=== PATIENT | male | born 1950 | race Hispanic/Latino ===

== ENCOUNTER 2016-08-26 09:07 | Emergency (ER) | payer OTHER ==
[2016-08-26 09:08] VITALS: BMI 20.7
[2016-08-26] MEDS ORDERED: Bacitracin 500 Units/gm Oint Foilpak UD ONE (09:43)
--- NOTE | 2016-08-26 09:50 | C.PDOC ---
History Of Present Illness 66 yo male w/PMHx of HTN come in for evaluation of Right big toe open wound developed for past 2 weeks. Pt admits, "sustained cut 2weeks ago that never healed". Otherwise, pt denies fever, chills, deformity to Right foot, weakness, sensory or vascular deficits to Right foot. Ambulate to ED for evaluation, not in any apparent distress. Time Seen by Provider: 08/26/16 09:21 Chief Complaint (Nursing): Wound Check History Per: Patient History/Exam Limitations: no limitations Onset/Duration Of Symptoms: Days Ago Current Symptoms Are (Timing): Still Present Severity: Mild Recent travel outside of the [place]: No Past Medical History Reviewed: Historical Data, Nursing Documentation, Vital Signs Vital Signs: Last Vital Signs Temp 98.6 F 08/26/16 11:09 Pulse 64 08/26/16 11:09 Resp 20 08/26/16 11:09 BP 209/85 H 08/26/16 11:06 Pulse Ox 100 08/26/16 11:09 - Medical History PMH: Arthritis, HTN Family History: States: Unknown Family Hx - Social History Hx Alcohol Use: Yes Hx Substance Use: No - Immunization History Hx Tetanus Toxoid Vaccination: No Hx Influenza Vaccination: No Hx Pneumococcal Vaccination: No Review Of Systems Except As Marked, All Systems Reviewed And Found Negative. Constitutional: Negative for: Fever, Chills Musculoskeletal: Positive for: Other (right big toe open wound, no deformity of right foot) Neurological: Negative for: Weakness, Numbness Physical Exam - Physical Exam Appears: Well, Non-toxic, No Acute Distress Skin: Normal Color, Warm, Other (Right 1st toe open wound 3cm diameter over plantar aspect at base of toe, mild yellowish discharge. Mild diffuse erythema of Right 1st toe. NO proximal streaking.) Eye(s): bilateral: Normal Inspection Throat: Normal Neck: Normal, Normal ROM, Supple Cardiovascular: Rhythm Regular Respiratory: Normal Breath Sounds, No Stridor, No Wheezing Gastrointestinal/Abdominal: Normal Exam, Soft, No Tenderness Extremity: Normal ROM, No Tenderness, No Pedal Edema, No Deformity, No Swelling Neurological/Psych: Oriented x3, Normal Speech, Normal Motor, Normal Sensation, Normal Reflexes ED Course And Treatment O2 Sat by Pulse Oximetry: 99 (on room air) Pulse Ox Interpretation: Normal Progress Note: Wound debrided, throughly irrigated, Bacitracin oit, xeroform and covered with streile dressing. Podiatry resident paged multiple times without reply. On re-eval, afebrile, hemodynamicaly stable. NOn-toxic. Noted HTN on triage. Pt denies any associated sx. Admits, takes BP medication once at bedtime, complaint. " I always have my BP high in 180'/100'. Just was at my doctor office few times for past few weeks and also noted my BP is high". Offered BP medication now in ED- pt refused. Pt request discharge at this time, " I will be fine". Otherwise, pt is neurologicaly intact. Right foot: exam c/ w chronic wound. FAROM, no neurovascular deficits. Pt advised to F/U with PMD in 1-2 days for BP re-eval and control, and marine insulator for further eval and wound tx. return to ED immediately if any worsening or new changes. Disposition Counseled Patient/Family Regarding: Diagnosis, Need For Followup, Rx Given - Disposition Referrals: Podiatry Clinic [Outside] Disposition: HOME/ ROUTINE Disposition Time: 11:02 Condition: STABLE Additional Instructions: [facility]/ CLINIC [address] [place] [address] PHONE: [phone] TAKE MEDICATION PRESCRIBED FOLLOW UP WITH [facility] IN 2-3 DAYS FOR RE-EVALUATION. RETURN TO ED IF ANY WORSENING OR NEW CHANGES. Prescriptions: Sulfamethoxazole/Trimethoprim [Bactrim DS 800 mg-160 mg] 1 tab PO BID #14 tab Instructions: Wound Infection (ED), Chronic Hypertension (ED) - Clinical Impression Clinical Impression: Infected wound, Hypertension - PA / BASIN OPERATOR / Resident Statement MD/DO has reviewed & agrees with the documentation as recorded.
[2016-08-26] MEDS ORDERED: Bacitracin Ointment 30 GM TUBE TOP STA (09:52)
[2016-08-26] MEDS ORDERED: Tmp-Smz 800 mg-160 mg DS Tab PO STA (09:52)
[2016-08-26] MEDS ORDERED: Tmp-Smz 800 mg-160 mg DS Tab ONE (09:55)
[2016-08-26 11:09] VITALS: BP 209/85
[2016-08-26 11:10] VITALS: PULSE 64; RESP 20; TEMP 98.6
[2016-08-29 13:50] VITALS: O2SAT 99
== END 2016-08-26 11:19 | disposition home or self-care (01) ==
LOC: C.ER 09:07
DX: S91.101A Unspecified open wound of right great toe without damage to nail, initial encounter (principal); L08.9 Local infection of the skin and subcutaneous tissue, unspecified; X58.XXXA Exposure to other specified factors, initial encounter; I10 Essential (primary) hypertension

== ENCOUNTER 2016-09-22 09:30 | Day surgery (SDC) | payer OTHER ==
[2016-09-20 15:11] VITALS: BMI 20.7
[2016-09-22] MEDS ORDERED: Iodixanol 320 MG/ML 200 ML BOTTLE IV ONE (10:42)
[2016-09-22] MEDS ORDERED: Midazolam 2 MG/2 ML VIAL ONE ×4 (11:05→12:59)
[2016-09-22] MEDS ORDERED: Iodixanol 320 MG/ML 100 ML BOTTLE IV ONE (13:04)
--- NOTE | 2016-09-22 14:16 | CP.SDSHP ---
Same Day Surgery H & P - History Proposed Procedure: see consult from Gino. no change. - Allergies Allergies: Allergies No Known Allergies Allergy (Verified 09/20/16 15:17) Short Stay Discharge - Short Stay Discharge Admitting Diagnosis/Reason for Visit: PVD Disposition: HOME/ ROUTINE
[2016-09-22] MEDS ORDERED: Sodium Chloride 0.45% 1,000 ML IV SCH (14:30)
--- NOTE | 2016-09-22 16:58 | OP ---
PROCEDURE DATE: 09/22/2016 PERFORMING PHYSICIAN: Meek Antony MD REFERRING PHYSICIAN: Aramis Lamb DPM PREOPERATIVE DIAGNOSIS: Right hallux ulcer. POSTOPERATIVE DIAGNOSIS: Bilateral peripheral vascular disease. PROCEDURE PERFORMED: Retrograde access left common femoral artery, selective catheter placement in the right anterior tibial artery via contralateral approach, abdominal aortography with bilateral iliofemoral runoff, bilateral lower extremity angiography, selective angiography right anterior tibial artery , use of the [employer] Ocelot chronic total occlusion crossing device, placement of distal embolic protection device, atherectomy right superficial femoral artery, balloon angioplasty and drug-eluting stent placement right superficial femoral artery, angioplasty right anterior tibial artery. COMPLICATIONS: None. HISTORY: The patient is a 66-year-old male with a past medical history of peripheral vascular disease, hypertension, hypercholesterolemia, who has a nonhealing ulcer of the hallux of the right foot. Arterial duplex was abnormal revealing monophasic flow. The patient is referred for angiography. DESCRIPTION OF PROCEDURE: After obtaining informed consent, the patient was prepped and draped in usual sterile fashion. Left common femoral artery was accessed. Sheath was advanced to the left common femoral artery. Abdominal aortography with bilateral iliofemoral runoff was performed. Bilateral lower extremity angiography using digital subtraction was performed. The sheath was exchanged followed by selective catheter placement and selective angiography. The patient tolerated the procedure well. Intervention was performed and is described separately below. FINDINGS: The infrarenal abdominal aorta is free of aneurysm of aneurysm or dissection. Bilateral renal arteries arise normally. There is no significant common iliac disease. Bilateral common femoral arteries exhibit eccentric calcification with [id number] atherosclerosis. The profunda femoralis are patent. The distal right superficial femoral artery/proximal popliteal artery is occluded 100%. The vessel reconstitutes at the level of the mid popliteal artery. There is 2-vessel runoff to the right foot. The right anterior tibial artery has a 99% subtotal occlusion proximally. In the left leg , there is occlusion of the mid left popliteal artery. Single vessel runoff is noted to the left foot. INTERVENTION: The sheath was exchanged for a 7-Czech Cook long sheath. An Slipstream Command ES guidewire was advanced. Anticoagulation with heparin was given. The [employer] Ocelot Lumivascular chronic total occlusion crossing device was loaded onto the loaded onto the Command ES guidewire. The Ocelot device was advanced to the proximal cap of the chronic total occlusion. Using Lumivascular technology, the chronic total occlusion was navigated with careful attention to remaining within the true lumen of the vessel. Intravascular imaging revealed mixed morphology plaque, with areas of calcification and fibrous plaque. The distal cap was crossed and the Velázquez Command ES guidewire was advanced to the peroneal artery. The Ocelot device was removed. A Trailblazer catheter was then advanced over the guidewire and then placed distally in the peroneal artery (Thrid order vessel). The Velázquez Command ES guidewire was removed and an Slipstream bare guidewire was advanced. The distal tip was placed in the peroneal artery. The Trailblazer catheter was removed. The Emboshield distal embolic protection device was deployed in the distal popliteal artery. A [employer] Jetstream atherectomy device was used to perform atherectomy of the 100% occlusion in the right superficial femoral artery/ popliteal artery. Two separate passes were performed. Residual 40% stenosis was seen. Angioplasty was performed with a 5 x 100 mm balloon. Residual 30% stenosis was seen. The Cook Zilver PTX 6 x 120 mm drug-eluting stent was positioned within the occluded segment. The stent was deployed successfully. The filter appeared to be full of debris. The filter was retrieved. A guidewire was then advanced across and into the right anterior tibial artery. Angioplasty of the proximal right anterior tibial artery was performed. There was residual 20% stenosis. Brisk antegrade flow was noted. The foot was well perfused. All catheters were then removed and an Angio-Seal device was deployed successfully to achieve hemostasis. CONCLUSIONS: 1. 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 2. Severe subtotal occlusion of the right anterior tibial artery. 3. Successful crossing with the [employer] Ocelot device. 4. Successful atherectomy with [employer] Jetstream followed by balloon angioplasty and drug-eluting stent placement with the Cook Zilver PTX. 5. Successful angioplasty of the right anterior tibial artery. PLAN: The patient will continue on antiplatelet therapy. 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 Meek Antony MD cc: [id number] TT: 09/22/2016 16:57:30 sn MTDD
[2016-09-25 20:22] VITALS: RESP 23; O2SAT 100
== END 2016-09-22 15:07 | disposition home or self-care (01) ==
LOC: C.CATHLAB 09:30
PROVIDERS: ATTEND Internal Medicine Cardiovascular Disease
DX: I70.235 Atherosclerosis of native arteries of right leg with ulceration of other part of foot (principal); L97.519 Non-pressure chronic ulcer of other part of right foot with unspecified severity; I70.92 Chronic total occlusion of artery of the extremities; I70.202 Unspecified atherosclerosis of native arteries of extremities, left leg

== ENCOUNTER 2018-07-25 12:05 | Inpatient (IN) | payer OTHER, MEDICARE ==
[2018-07-25 12:05] VITALS: BMI 20.7
[2018-07-25] MEDS ORDERED: Sodium Chloride 0.9% 1,000 ML IV ONE ×2 (12:39→13:59)
[2018-07-25] MEDS ORDERED: Tdap Vaccine 0.5 ml Vial (10-64 yrs) IM ONE ×2 (12:43→12:54)
[2018-07-25] MEDS ORDERED: Oxycodone/Acetaminophen 5/325 mg Tab PO STA (12:44)
[2018-07-25] MEDS ORDERED: Sodium Chloride 0.9% 1,000 ML ONE (12:52)
[2018-07-25] MEDS ORDERED: Oxycodone/Acetaminophen 5/325 mg Tab ONE (12:54)
[2018-07-25 12:59] LABS: BASO # 0.1 K/uL (0.0-0.2); BASO % 0.8 % (0.0-2.0); EOS % 0.2 % (0.0-4.0); HEMOGLOBIN 13.3 g/dL (12.0-18.0); LYMPH # 0.8 K/uL (1.0-4.3); LYMPH % 7.1 % (20.0-40.0); MEAN CELL VOLUME 96.2 fL (80.0-94.0); MEAN CORPUSCULAR HEMOGLOBIN 32.7 pg (27.0-31.0); MEAN PLATELET VOLUME 7.3 fL (7.2-11.7); MONO # 0.8 K/uL (0.0-0.8); NEUT # 9.9 K/uL (1.8-7.0); NEUT % 84.9 % (50.0-75.0); PLATELET COUNT 609 K/uL (130-400); RBC 4.07 Mil/uL (4.40-5.90); RED CELL DISTRIBUTION WIDTH 13.6 % (11.5-14.5); WHITE BLOOD COUNT 11.6 K/uL (4.8-10.8)
--- NOTE | 2018-07-25 13:00 | C.PDOC ---
History Of Present Illness 68 year old male, whose past medical history includes alcohol use and hypertension, presents to the ED for evaluation of left arm pain after he reportedly sustained a fall yesterday. Patient states he remembers waking up on the floor and getting into his bed, and is unable to recall additional details. He does not recall if his fall was due to syncope, how long he was on the floor, or the events leading up to the incident. Patient also states he had a fever and was feeling unwell earlier this week. Patient has not been able to take his blood pressure medication because he is unable to open the bottle. Patient denies headache, blurry vision, neck pain. Time Seen by Provider: 07/25/18 12:23 Chief Complaint (Nursing): Upper Extremity Problem/Injury History Per: Patient History/Exam Limitations: other (patient unable to recall details of event ) Onset/Duration Of Symptoms: Hrs Current Symptoms Are (Timing): Still Present Quality: "Pain" Additional History Per: Patient Past Medical History Reviewed: Historical Data, Nursing Documentation, Vital Signs Vital Signs: Last Vital Signs Temp 99.6 F 07/25/18 12:56 Pulse 86 07/25/18 12:16 Resp 18 07/25/18 12:16 BP 191/99 H 07/25/18 12:16 Pulse Ox 99 07/25/18 12:16 - Medical History PMH: Arthritis, HTN Denies: HIV, Chronic Kidney Disease Surgical History: No Surg Hx - [facility] Procedures EXCISION OF R FOOT SUBCU/FASCIA, OPEN APPROACH (09/20/16) INSERTION OF INFUSION DEV INTO SUP VENA CAVA, PERC APPROACH (09/20/16) Family History: States: Unknown Family Hx - Social History Hx Alcohol Use: Yes (drinks 1 bottle of beer q day) Hx Substance Use: No - Immunization History Hx Tetanus Toxoid Vaccination: No Hx Influenza Vaccination: No Hx Pneumococcal Vaccination: No Review Of Systems Eyes: Negative for: Vision Change Musculoskeletal: Positive for: Arm Pain (left). Negative for: Neck Pain Neurological: Negative for: Headache Physical Exam - Physical Exam Appears: Non-toxic, No Acute Distress, Other (elderly male, appears older than stated age ) Head: No Tenderness (orbital ), Abrasion (right upper forehead ) Eye(s): bilateral: PERRL, EOMI Ear(s): Bilateral: Normal, Other (no hemotympanum. no morgan signs ) Oral Mucosa: Dry Neck: No Midline Cervical Tenderness Chest: Symmetrical, No Deformity, No Tenderness Cardiovascular: No Murmur, Other (distant heart sounds ) Respiratory: Normal Breath Sounds, No Rales, No Rhonchi, No Wheezing Gastrointestinal/Abdominal: Soft, No Tenderness, No Guarding, No Rebound Extremity: Capillary Refill (less than 2 seconds ), Other (marked swelling, ecchymosis, tenderness and deformity from left wrist to left elbow, compartment is soft. ecchymosis to anterior aspect of right arm) Pulses: Left Radial: Normal, Right Radial: Normal Neurological/Psych: Oriented x3, Normal Speech, Normal Cognition, Normal Cranial Nerves (intact ), Other (appears tremulous ) ED Course And Treatment - Laboratory Results Result Diagrams: 07/25/18 12:55 07/25/18 12:55 ECG: Interpreted By Me, Viewed By Me ECG Rhythm: Sinus Rhythm Interpretation Of ECG: Sinus rhythm at rate 73bpm with premature atrial complexes Rate From EC O2 Sat by Pulse Oximetry: 99 (on RA) Pulse Ox Interpretation: Normal - Other Rad CXR X-Ray: Viewed By Me, Read By Radiologist Interpretation: Date of service: 07/25/2018. PROCEDURE: CHEST RADIOGRAPH, 1 VIEW. HISTORY: Cough. COMPARISON: None available. FINDINGS: LUNGS: The lungs are hyperinflated and there is peribronchial thickening with chronic changes in both lungs. No lobar pneumonia. PLEURA: No pneumothorax or pleural effusion. CARDIOVASCULAR: The heart is normal in size. No aortic atherosclerotic calcifications present. OSSEOUS STRUCTURES: Within normal limits for the patient's age. VISUALIZED UPPER ABDOMEN: Normal. OTHER FINDINGS: None. IMPRESSION: No active pulmonary disease. COPD. left wrist XR X-Ray: Viewed By Me, Read By Radiologist Interpretation: Date of service: 07/25/2018. PROCEDURE: Left Wrist Radiographs. . HISTORY: Fall, swelling deformity. COMPARISON: None. FINDINGS: BONES: There an acute comminuted impacted displaced fracture in the distal radius with 10 mm ulnar displacement of the distal fracture fragment without significant angulation. There is an acute comminuted impacted fracture in the distal ulna with 10 mm ulnar displacement of distal fracture fragment and mild volar angulation. JOINTS: The joint spaces are preserved. No di slocation. SOFT TISSUES: There is moderate soft tissue swelling at the wrist joint. OTHER FINDINGS: None. IMPRESSION: 1. Acute comminuted impacted displaced fracture in the distal radius with 10 mm ulnar displacement of distal fracture fragment without significant angulation. 2. Acute comminuted impacted fracture in the distal ulna with 10 mm ulnar displacement of the fracture fragment with mild volar angulation. left hand XR X-Ray: Viewed By Me, Read By Radiologist Interpretation: PROCEDURE: Left Hand Radiographs. HISTORY: fall pain. COMPARISON: None. FINDINGS: BONES: There is an oblique comminuted mildly displaced fracture in the midshaft of the 5th metacarpal with mild dorsal angulation. There is an acute comminuted fracture in the base of the middle phalanx of the 4th finger. There is periarticular bone demineralization. Bone alignment is normal. JOINTS: Normal. No osteoarthritic changes. SOFT TISSUES: Soft tissue swelling in the 4th finger and lateral to the 5th metacarpal. OTHER FINDINGS: None. IMPRESSION: Acute oblique mildly displaced fracture in the midshaft of the 5th metacarpal with overlying soft tissue swelling. Acute comminuted impacted nondisplaced fracture in the proximal aspect of the middle phalanx of the 4th finger with surrounding soft tissue swelling. - CT Scan/US Head CT Other Rad Studies (CT/US): Read By Radiologist, Radiology Report Reviewed CT/US Interpretation: Date of service: 07/25/2018. PROCEDURE: CT HEAD WITHOUT CONTRAST. HISTORY: fall with loc. COMPARISON: None available. TECHNIQUE: Axial computed tomography images were obtained through the head/brain without intravenous contrast. Radiation dose: Total exam DLP = 1080.71 mGy-cm. This CT exam was performed using one or more of the following dose reduction techniques: Automated exposure control, adjustment of the mA and/or kV according to patient size, and/or use of iterative reconstruction technique. FINDINGS: HEMORRHAGE: No intracranial hemorrhage. BRAIN: No mass effect or edema. Intracranial atherosclerosis. The sears-white matter differentiation appears intact. Please note that MRI with diffusion imaging is more sensitive in the detection of acute ischemic event. VENTRICLES: No hydrocephalus. CALVARIUM: Unremarkable. PARANASAL SINUSES: Unremarkable as visualized. No significant inflammatory changes. MASTOID AIR CELLS: Unremarkable as visualized. No inflammatory changes. OTHER FINDINGS: None. IMPRESSION: No acute intracranial pathology identified. forearm XR Other Rad Studies (CT/US): Read By Radiologist, Radiology Report Reviewed CT/US Interpretation: Date of service: 07/25/2018. PROCEDURE: Radiographs of the Left Forearm. HISTORY: fall swelling. COMPARISON: None available. TECHNIQUE: Frontal and lateral views obtained. FINDINGS: BONES: No acute fracture in the proximal radius and ulna. Bone alignment is normal. JOINT SPACES: Unremarkable. OTHER FINDINGS: None. IMPRESSION: No acute fracture or dislocation in the proximal radius and ulna. Please refer to radiographs of the wrist for detailed description of fractures in the distal radius and ulna. Medical Decision Making Medical Decision Making: Progress: Bloodwork, urinalysis, CT Cervical Spine, CT Head, CXR, EKG, left hand XR, left wrist XR, and left forearm XR ordered and reviewed. Percocet PO, Tetanus IM and IV Fluids given. Patient moved to the main ED. 13:55 Case discussed with Maryellen Berman (orthopedic PA) [id number] pt wiht neg cxr, neg head ct for ich. neg c-spine ct for fx. pt has distal radius and ulnar fx and 5th metacarpal fx, found to be hyponatrmic and hypochloremic. pt has alc level 33, likely to go into withdrawal. will admit to telemetry to Dr Marcia Centeno Disposition - Disposition - Clinical Impression Clinical Impression: Syncope, Hyponatremia, Hypochloremia, Alcohol abuse, Distal radius fracture, left, Ulna distal fracture - PA / KILNMAN / Resident Statement MD/DO has reviewed & agrees with the documentation as recorded. - Scribe Statement The provider has reviewed the documentation as recorded by the Scribe (Rosa Centeno) All medical record entries made by the Scribe were at my direction and personally dictated by me. I have reviewed the chart and agree that the record accurately reflects my personal performance of the history, physical exam, medical decision making, and the department course for this patient. I have also personally directed, reviewed, and agree with the discharge instructions and dis position. Decision To Admit - Pt Status Changed To: Hospital Disposition Of: Inpatient - Admit Certification Admit to Inpatient:: After my assessment, the patient will require hospita lization for at least two midnights. This is because of the severity of symptoms shown, intensity of services needed, and/or the medical risk in this patient being treated as an outpatient. - InPatient: Physician Admission Certification: I certify that this patient requires 2 or more midnights of care for the following reason:: eval for syncope, electrolyte imbalance and fracture - . Bed Request Type: Telemetry Admitting Physician: Danni Centeno Patient Diagnosis: Syncope, Hyponatremia, Hypochloremia, Alcohol abuse, Distal radius fracture, left, Ulna distal fracture
[2018-07-25 13:10] LABS: VENOUS BLOOD GAS BASE EXCESS 1.2 mmol/L (0.0-2.0); VENOUS BLOOD GAS PCO2 44 mmHg (40-60); VENOUS BLOOD GAS PO2 21 mm/Hg (30-55); VENOUS BLOOD PH 7.39 (7.32-7.43)
[2018-07-25 13:15] LABS: ALB/GLOB RATIO 1.8 (1.0-2.1); ALBUMIN 5.2 g/dL (3.5-5.0); ALT/SGPT 38 U/L (21-72); AST/SGOT 93 U/L (17-59); BLOOD UREA NITROGEN 13 mg/dL (9-20); CALCIUM 9.4 mg/dl (8.6-10.4); GFR NON-AFRICAN AMERICAN > 60; LIPASE 140 U/L (23-300)
[2018-07-25 13:17] LABS: PROTHROMBIN TIME 10.4 SECONDS (9.7-12.2)
--- NOTE | 2018-07-25 13:30 | RAD ---
Date of service: 07/25/2018 PROCEDURE: CHEST RADIOGRAPH, 1 VIEW HISTORY: Cough COMPARISON: None available. FINDINGS: LUNGS: The lungs are hyperinflated and there is peribronchial thickening with chronic changes in both lungs. No lobar pneumonia. PLEURA: No pneumothorax or pleural effusion. CARDIOVASCULAR: The heart is normal in size. No aortic atherosclerotic calcifications present. OSSEOUS STRUCTURES: Within normal limits for the patient's age. VISUALIZED UPPER ABDOMEN: Normal. OTHER FINDINGS: None. IMPRESSION: No active pulmonary disease. COPD.
--- NOTE | 2018-07-25 13:34 | RAD ---
Date of service: 07/25/2018 PROCEDURE: Left Wrist Radiographs. HISTORY: Fall, swelling deformity COMPARISON: None. FINDINGS: BONES: There an acute comminuted impacted displaced fracture in the distal radius with 10 mm ulnar displacement of the distal fracture fragment without significant angulation. There is an acute comminuted impacted fracture in the distal ulna with 10 mm ulnar displacement of distal fracture fragment and mild volar angulation. JOINTS: The joint spaces are preserved. No dislocation. SOFT TISSUES: There is moderate soft tissue swelling at the wrist joint. OTHER FINDINGS: None. IMPRESSION: 1. Acute comminuted impacted displaced fracture in the distal radius with 10 mm ulnar displacement of distal fracture fragment without significant angulation. 2. Acute comminuted impacted fracture in the distal ulna with 10 mm ulnar displacement of the fracture fragment with mild volar angulation.
--- NOTE | 2018-07-25 13:36 | RAD ---
PROCEDURE: Left Hand Radiographs. HISTORY: fall pain COMPARISON: None. FINDINGS: BONES: There is an oblique comminuted mildly displaced fracture in the midshaft of the 5th metacarpal with mild dorsal angulation. There is an acute comminuted fracture in the base of the middle phalanx of the 4th finger. There is periarticular bone demineralization. Bone alignment is normal. JOINTS: Normal. No osteoarthritic changes. SOFT TISSUES: Soft tissue swelling in the 4th finger and lateral to the 5th metacarpal. OTHER FINDINGS: None. IMPRESSION: Acute oblique mildly displaced fracture in the midshaft of the 5th metacarpal with overlying soft tissue swelling. Acute comminuted impacted nondisplaced fracture in the proximal aspect of the middle phalanx of the 4th finger with surrounding soft tissue swelling.
--- NOTE | 2018-07-25 13:37 | RAD ---
Date of service: 07/25/2018 PROCEDURE: Radiographs of the Left Forearm HISTORY: fall swelling COMPARISON: None available. TECHNIQUE: Frontal and lateral views obtained. FINDINGS: BONES: No acute fracture in the proximal radius and ulna. Bone alignment is normal. JOINT SPACES: Unremarkable. OTHER FINDINGS: None. IMPRESSION: No acute fracture or dislocation in the proximal radius and ulna. Please refer to radiographs of the wrist for detailed description of fractures in the distal radius and ulna.
--- NOTE | 2018-07-25 13:51 | CT ---
Date of service: 07/25/2018 PROCEDURE: CT HEAD WITHOUT CONTRAST. HISTORY: fall with loc COMPARISON: None available. TECHNIQUE: Axial computed tomography images were obtained through the head/brain without intravenous contrast. Radiation dose: Total exam DLP = 1080.71 mGy-cm. This CT exam was performed using one or more of the following dose reduction techniques: Automated exposure control, adjustment of the mA and/or kV according to patient size, and/or use of iterative reconstruction technique. FINDINGS: HEMORRHAGE: No intracranial hemorrhage. BRAIN: No mass effect or edema. Intracranial atherosclerosis. The sears-white matter differentiation appears intact. Please note that MRI with diffusion imaging is more sensitive in the detection of acute ischemic event. VENTRICLES: No hydrocephalus. CALVARIUM: Unremarkable. PARANASAL SINUSES: Unremarkable as visualized. No significant inflammatory changes. MASTOID AIR CELLS: Unremarkable as visualized. No inflammatory changes. OTHER FINDINGS: None. IMPRESSION: No acute intracranial pathology identified.
[2018-07-25 14:00] LABS: EOSINOPHIL 1 % (0-4); LYMPHOCYTE 4 % (20-40); MONOCYTE 4 % (0-10); NEUTROPHIL 91 % (50-75); TOTAL CELLS COUNTED 100
--- NOTE | 2018-07-25 14:04 | CT ---
Date of service:07/25/2018 CT cervical spine without IV contrast Indication: fall with loc Comparison: None available Technique: Axial computed tomography images were obtained of the cervical spine without the use of intravenous contrast. Coronal and sagittal reformatted images were created and reviewed. This CT exam was performed using 1 or more of the following dose reduction techniques: Automated exposure control, adjustment of the MAA and/or kV according to patient size, and/or use of iterative reconstruction technique. Radiation dose: Total exam DLP = 497.75 mGy-cm. Findings: Examination limited by slight motion at the C5-C6 level. Straightening of the normal cervical lordosis may be related to muscle spasm or positioning. Osseous demineralization limits evaluation for acute fracture lines. Extensive multilevel degenerative changes which appear most severe at the C3 through C7 levels. C6-C7 partial vertebral body osseous fusion. Severe intervertebral disc space narrowing and osteophyte formation at C4 through C6. There is no evidence of acute fracture or subluxation. The prevertebral soft tissues and spinolaminar lines appear intact. The lateral masses are preserved. The dens tip is intact. There is proper alignment of the lateral masses of C1 with the C2 vertebral body. Included portions of the thyroid gland 7 mm hypodense nodule as well as punctate calcification in the right lower pole. Included portions of lung apices appear clear. Impression: Examination limited by slight motion at the C5-C6 level. Straightening of the normal cervical lordosis may be related to muscle spasm or positioning. Osseous demineralization limits evaluation for acute fracture lines. Extensive multilevel degenerative changes which appear most severe at the C3 through C7 levels. C6-C7 partial vertebral body osseous fusion. Severe intervertebral disc space narrowing and osteophyte formation at C4 through C6. No acute displaced fracture or subluxation identified. Included portions of the thyroid gland 7 mm hypodense nodule as well as punctate calcification in the right lower pole. Follow-up outpatient thyroid ultrasound may be considered if indicated.
[2018-07-25 14:05] LABS: PLATELET ESTIMATE INCREASED (NORMAL)
[2018-07-25] MEDS ORDERED: ceFAZolin IV 1 gm in Dextrose 1 GM/50 ML BAG IVPB ONE (15:02)
[2018-07-25] MEDS ORDERED: ceFAZolin 1 gm in NS 1 GM/100 ML BAG IVPB ONE (15:08)
--- NOTE | 2018-07-25 15:49 | CP.PCM.CON ---
History of Present Illness - History of Present Illness History of Present Illness: Orthopedic consult: Dr. Lilly Patient is a 68 y/o RHD male who presents to [facility] with c/o L wrist/hand pain. Patient reports a fall yesterday in his home onto tiled surface, however he cannot recall the fall and remembers waking up on the floor. There is severe pain to the wrist and hand associated with swelling and bruising. He denies any numbness/tingling. He reports history of stroke in 2010 and has had multiple falls due to imbalance as a result. He does not take any anticoagulants currently. He has a cane/walker at home but does not use it. He currently denies CP/SOB/N/V/D/dysuria/melena. PMH: HTN, CVA (2010), chronic back pain PSH: R ankle ORIF, lumbar laminectomy meds: losartan/HCTZ allergy: NKDA SH: tobacco 1/2 ppd, drinks 6 beers daily, denies drug use Review of Systems - Review of Systems All systems: reviewed and no additional remarkable complaints except Review of Systems: as per HPI Past Patient History - Past Medical History & Family History Past Medical History?: Yes Past Family History: Reviewed and not pertinent - Past Social History Smoking Status: Light Smoker < 10 Cigarettes Daily - CARDIAC Hx Hypertension: Yes - PULMONARY Hx Respiratory Disorders: No - NEUROLOGICAL Hx Neurological Disorder: No - HEENT Hx HEENT Problems: No - RENAL Hx Chronic Kidney Disease: No - ENDOCRINE/METABOLIC Hx Endocrine Disorders: No - HEMATOLOGICAL/ONCOLOGICAL Hx Human Immunodeficiency Virus (HIV): No - INTEGUMENTARY Hx Dermatological Problems: No - MUSCULOSKELETAL/RHEUMATOLOGICAL Hx Arthritis: Yes - GASTROINTESTINAL Hx Gastrointestinal Disorders: No - GENITOURINARY/GYNECOLOGICAL Hx Genitourinary Disorders: No - PSYCHIATRIC Hx Substance Use: No - SURGICAL HISTORY Hx Surgeries: Yes Hx Open Reduction Internal Fixation: Yes (rt distal fibula) Other/Comment: epidural,[id number] - ANESTHESIA Hx Anesthesia: Yes Hx Anesthesia Reactions: No Hx Malignant Hyperthermia: No Meds Allergies/Adverse Reactions: Allergies Allergy/AdvReac Type Severity Reaction Status Date / Time No Known Allergies Allergy Verified 07/25/18 12:13 - Medications Medications: Current Medications Sodium Chloride (Sodium Chloride 0.9%) 1,000 mls @ 250 mls/hr IV .Q4H ONE Stop: 07/25/18 16:38 Last Admin: 07/25/18 13:15 Dose: 250 mls/hr Physical Exam - Constitutional Appears: Well, No Acute Distress - Head Exam Head Exam: ATRAUMATIC - Eye Exam Eye Exam: EOMI, Normal appearance - ENT Exam ENT Exam: Mucous Membranes Moist - Respiratory Exam Respiratory Exam: NORMAL BREATHING PATTERN - Extremities Exam Additional comments: LUE: severe swelling and ecchymosis from proximal forearm to dorsal aspect of hand puncture wound to radial side of volar wrist +wrist deformity tenderness to diffuse wrist, mild tenderness over 5th MCP and 4th proximal phalynx sensation intact MN/UN/RN motor intact MN/UN/RN radial pulse intact, 2 sec cap refill all fingers RUE: no tenderness, no lesions, no masses sensation and motor intact MN/UN/RN radial pulse intact - Neurological Exam Neurological exam: Alert, Oriented x3 - Psychiatric Exam Psychiatric exam: Normal Affect, Normal Mood - Skin Skin Exam: Normal Color, Warm Results - Vital Signs Recent Vital Signs: Last Vital Signs Temp 99.6 F 07/25/18 12:56 Pulse 64 07/25/18 14:07 Resp 18 07/25/18 14:07 BP 176/84 H 07/25/18 14:07 Pulse Ox 99 07/25/18 15:49 - Labs Result Diagrams: 07/25/18 12:55 07/25/18 12:55 Labs: Laboratory Results - last 24 hr 07/25/18 07/25/18 07/25/18 12:55 12:55 12:55 WBC 11.6 H RBC 4.07 L Hgb 13.3 Hct 39.2 MCV 96.2 H MCH 32.7 H MCHC 34.0 RDW 13.6 Plt Count 609 H MPV 7.3 Neut % (Auto) 84.9 H Lymph % (Auto) 7.1 L [place] % (Auto) 7.0 Eos % (Auto) 0.2 Baso % (Auto) 0.8 Neut # (Auto) 9.9 H Lymph # (Auto) 0.8 L [place] # (Auto) 0.8 Eos # (Auto) 0.0 Baso # (Auto) 0.1 Neutrophils % (Manual) 91 H Lymphocytes % (Manual) 4 L Monocytes % (Manual) 4 Eosinophils % (Manual) 1 Platelet Estimate Increased H RBC Morphology Normal PT 10.4 INR 1.0 APTT 33 pO2 VBG pH VBG pCO2 VBG HCO3 VBG Total CO2 VBG O2 Sat (Calc) VBG Base Excess VBG Potassium Glucose Lactate Sodium 125 L Potassium 4.6 Chloride 84 L Carbon Dioxide 26 Anion Gap 19 BUN 13 Creatinine 1.0 Est GFR ( Amer) > 60 Est GFR (Non-Af Amer) > 60 Random Glucose 97 Calcium 9.4 Total Bilirubin 0.6 AST 93 H ALT 38 Alkaline Phosphatase 106 Total Creatine Kinase 306 H Troponin I 0.0300 Total Protein 8.0 Albumin 5.2 H Globulin 2.8 Albumin/Globulin Ratio 1.8 Lipase 140 Venous Blood Potassium Alcohol, Quantitative 33 H 07/25/18 13:00 WBC RBC Hgb Hct MCV MCH MCHC RDW Plt Count MPV Neut % (Auto) Lymph % (Auto) [place] % (Auto) Eos % (Auto) Baso % (Auto) Neut # (Auto) Lymph # (Auto) [place] # (Auto) Eos # (Auto) Baso # (Auto) Neutrophils % (Manual) Lymphocytes % (Manual) Monocytes % (Manual) Eosinophils % (Manual) Platelet Estimate RBC Morphology PT INR APTT pO2 21 L VBG pH 7.39 VBG pCO2 44 VBG HCO3 24.1 VBG Total CO2 28.0 VBG O2 Sat (Calc) 33.4 L VBG Base Excess 1.2 VBG Potassium 4.1 Glucose 88 Lactate 3.7 H Sodium 127.0 L Potassium Chloride 90.0 L Carbon Dioxide Anion Gap BUN Creatinine Est GFR ( Amer) Est GFR (Non-Af Amer) Random Glucose Calcium Total Bilirubin AST ALT Alkaline Phosphatase Total Creatine Kinase Troponin I Total Protein Albumin Globulin Albumin/Globulin Ratio Lipase Venous Blood Potassium 4.1 Alcohol, Quantitative - Impressions Impression: Accession No. : [id number] Patient Name / ID : MIRNA MANZO / [id number] Exam Date : 07/25/2018 12:51:11 ( Approved ) Study Comment : Sex / Age : M / 68Y Creator : allan coleman Dictator : Chasidy Rivera MD Line Service Person : Charge Rn : Chasidy Rivera MD Approver2 : Report Date : 07/25/2018 13:26:37 My Comment : Date of service: 07/25/2018 PROCEDURE: Left Wrist Radiographs. HISTORY: Fall, swelling deformity COMPARISON: None. FINDINGS: BONES: There an acute comminuted impacted displaced fracture in the distal radius with 10 mm ulnar displacement of the distal fracture fragment without significant angulation. There is an acute comminuted impacted fracture in the distal ulna with 10 mm ulnar displacement of distal fracture fragment and mild volar angulation. JOINTS: The joint spaces are preserved. No dislocation. SOFT TISSUES: There is moderate soft tissue swelling at the wrist joint. OTHER FINDINGS: None. IMPRESSION: 1. Acute comminuted impacted displaced fracture in the distal radius with 10 mm ulnar displacement of distal fracture fragment without significant angulation. 2. Acute comminuted impacted fracture in the distal ulna with 10 mm ulnar displacement of the fracture fragment with mild volar angulation. Accession No. : [id number] Patient Name / ID : MIRNA MANZO / [id number] Exam Date : 07/25/2018 12:50:57 ( Approved ) Study Comment : Sex / Age : M / 68Y Creator : allan coleman Dictator : Chasidy Rivera MD Line Service Person : Charge Rn : Chasidy Rivera MD Approver2 : Report Date : 07/25/2018 13:26:37 My Comment : PROCEDURE: Left Hand Radiographs. HISTORY: fall pain COMPARISON: None. FINDINGS: BONES: There is an oblique comminuted mildly displaced fracture in the midshaft of the 5th metacarpal with mild dorsal angulation. There is an acute comminuted fracture in the base of the middle phalanx of the 4th finger. There is periarticular bone demineralization. Bone alignment is normal. JOINTS: Normal. No osteoarthritic changes. SOFT TISSUES: Soft tissue swelling in the 4th finger and lateral to the 5th metacarpal. OTHER FINDINGS: None. IMPRESSION: Acute oblique mildly displaced fracture in the midshaft of the 5th metacarpal with overlying soft tissue swelling. Acute comminuted impacted nondisplaced fracture in the proximal aspect of the middle phalanx of the 4th finger with surrounding soft tissue swelling. Accession No. : [id number] Patient Name / ID : MIRNA MANZO / [id number] Exam Date : 07/25/2018 12:50:36 ( Approved ) Study Comment : Sex / Age : M / 68Y Creator : allan coleman Dictator : Chasidy Rivera MD Line Service Person : Charge Rn : Chasidy Rivera MD Approver2 : Report Date : 07/25/2018 13:25:31 My Comment : Date of service: 07/25/2018 PROCEDURE: Radiographs of the Left Forearm HISTORY: fall swelling COMPARISON: None available. TECHNIQUE: Frontal and lateral views obtained. FINDINGS: BONES: No acute fracture in the proximal radius and ulna. Bone alignment is normal. JOINT SPACES: Unremarkable. OTHER FINDINGS: None. IMPRESSION: No acute fracture or dislocation in the proximal radius and ulna. Please refer to radiographs of the wrist for detailed description of fractures in the distal radius and ulna. Assessment & Plan (1) Distal radius fracture, left Assessment and Plan: -Puncture wound was irrigated bedside using sterile technique with copious amount of saline. Wound was then irrigated with betadine and dressed sterile. -Recommed IV abx for infection ppx due to puncture wound -Forearm was placed in a long arm splint -[facility] -Dr. Lilly recommends L wrist ORIF once swelling improves -strict ice and elevation -Needs medical/neurology/cardiac clearance preop due to syncopal episode -will follow -above d/w Dr. Boiardo in agreement Status: Acute (2) Left ulnar fracture Status: Acute (3) Fracture of fifth metacarpal bone of left hand Assessment and Plan: -Fracture incorporated into long arm splint -Conservative management with immobilization Status: Acute (4) Fracture of phalanx of finger of left hand Assessment and Plan: -immobilized with holly tape Status: Acute - Date & Time Date: 07/25/18 Time: 15:00 Procedures - Time-Out Type of Procedure: Left long arm splint application Site of Procedure: left Correct Patient: Yes Correct Procedure: Yes Correct Site Marked: Yes X-Ray Marked: Yes Medication Recon: Yes PA/Tech: Edgar Beavers PA-C - Splinting Location: Left forearm Hand-Made Type: orthoglass Splint: sugar-tong Pre-Proc Neuro Vasc Exam: normal Post-Proc Neuro Vasc Exam: normal Progress: Long arm splint incorporates hand to immobilize 5th MCP fx 4th digit was holly taped to 5th digit to immobilize 4th middle phalynx fx
--- NOTE | 2018-07-25 17:31 | CP.PCM.HP ---
Past Patient History - Past Medical History & Family History Past Medical History?: Yes Past Family History: Reviewed and not pertinent - Past Social History Smoking Status: Light Smoker < 10 Cigarettes Daily - CARDIAC Hx Hypertension: Yes - PULMONARY Hx Respiratory Disorders: No - NEUROLOGICAL Hx Neurological Disorder: No - HEENT Hx HEENT Problems: No - RENAL Hx Chronic Kidney Disease: No - ENDOCRINE/METABOLIC Hx Endocrine Disorders: No - HEMATOLOGICAL/ONCOLOGICAL Hx Human Immunodeficiency Virus (HIV): No - INTEGUMENTARY Hx Dermatological Problems: No - MUSCULOSKELETAL/RHEUMATOLOGICAL Hx Arthritis: Yes - GASTROINTESTINAL Hx Gastrointestinal Disorders: No - GENITOURINARY/GYNECOLOGICAL Hx Genitourinary Disorders: No - PSYCHIATRIC Hx Substance Use: No - SURGICAL HISTORY Hx Surgeries: Yes Hx Open Reduction Internal Fixation: Yes (rt distal fibula) Other/Comment: epidural,[id number] - ANESTHESIA Hx Anesthesia: Yes Hx Anesthesia Reactions: No Hx Malignant Hyperthermia: No Meds Allergies/Adverse Reactions: Allergies Allergy/AdvReac Type Severity Reaction Status Date / Time No Known Allergies Allergy Verified 07/25/18 12:13 Physical Exam - Constitutional Appears: Well - Head Exam Head Exam: ATRAUMATIC, NORMAL INSPECTION, NORMOCEPHALIC - Eye Exam Eye Exam: EOMI, Normal appearance, PERRL Pupil Exam: NORMAL ACCOMODATION, PERRL - ENT Exam ENT Exam: Mucous Membranes Moist, Normal Exam - Neck Exam Neck exam: Positive for: Normal Inspection - Respiratory Exam Respiratory Exam: Decreased Breath Sounds - Cardiovascular Exam Cardiovascular Exam: REGULAR RHYTHM, +S1, +S2 - GI/Abdominal Exam GI & Abdominal Exam: Diminished Bowel Sounds, Soft - Rectal Exam Rectal Exam: Deferred Results - Vital Signs Recent Vital Signs: Last Vital Signs Temp 99.6 F 07/25/18 12:56 Pulse 77 07/25/18 16:05 Resp 21 07/25/18 16:05 BP 169/93 H 07/25/18 16:05 Pulse Ox 99 07/25/18 16:05 - Labs Result Diagrams: 07/25/18 12:55 07/25/18 12:55 Labs: Laboratory Results - last 24 hr 07/25/18 07/25/18 07/25/18 12:55 12:55 12:55 WBC 11.6 H RBC 4.07 L Hgb 13.3 Hct 39.2 MCV 96.2 H MCH 32.7 H MCHC 34.0 RDW 13.6 Plt Count 609 H MPV 7.3 Neut % (Auto) 84.9 H Lymph % (Auto) 7.1 L [place] % (Auto) 7.0 Eos % (Auto) 0.2 Baso % (Auto) 0.8 Neut # (Auto) 9.9 H Lymph # (Auto) 0.8 L [place] # (Auto) 0.8 Eos # (Auto) 0.0 Baso # (Auto) 0.1 Neutrophils % (Manual) 91 H Lymphocytes % (Manual) 4 L Monocytes % (Manual) 4 Eosinophils % (Manual) 1 Platelet Estimate Increased H RBC Morphology Normal PT 10.4 INR 1.0 APTT 33 pO2 VBG pH VBG pCO2 VBG HCO3 VBG Total CO2 VBG O2 Sat (Calc) VBG Base Excess VBG Potassium Glucose Lactate Sodium 125 L Potassium 4.6 Chloride 84 L Carbon Dioxide 26 Anion Gap 19 BUN 13 Creatinine 1.0 Est GFR ( Amer) > 60 Est GFR (Non-Af Amer) > 60 Random Glucose 97 Calcium 9.4 Total Bilirubin 0.6 AST 93 H ALT 38 Alkaline Phosphatase 106 Total Creatine Kinase 306 H Troponin I 0.0300 Total Protein 8.0 Albumin 5.2 H Globulin 2.8 Albumin/Globulin Ratio 1.8 Lipase 140 Venous Blood Potassium Alcohol, Quantitative 33 H 07/25/18 13:00 WBC RBC Hgb Hct MCV MCH MCHC RDW Plt Count MPV Neut % (Auto) Lymph % (Auto) [place] % (Auto) Eos % (Auto) Baso % (Auto) Neut # (Auto) Lymph # (Auto) [place] # (Auto) Eos # (Auto) Baso # (Auto) Neutrophils % (Manual) Lymphocytes % (Manual) Monocytes % (Manual) Eosinophils % (Manual) Platelet Estimate RBC Morphology PT INR APTT pO2 21 L VBG pH 7.39 VBG pCO2 44 VBG HCO3 24.1 VBG Total CO2 28.0 VBG O2 Sat (Calc) 33.4 L VBG Base Excess 1.2 VBG Potassium 4.1 Glucose 88 Lactate 3.7 H Sodium 127.0 L Potassium Chloride 90.0 L Carbon Dioxide Anion Gap BUN Creatinine Est GFR ( Amer) Est GFR (Non-Af Amer) Random Glucose Calcium Total Bilirubin AST ALT Alkaline Phosphatase Total Creatine Kinase Troponin I Total Protein Albumin Globulin Albumin/Globulin Ratio Lipase Venous Blood Potassium 4.1 Alcohol, Quantitative
--- NOTE | 2018-07-25 19:11 | RAD ---
Date of service: 07/25/2018 PROCEDURE: Left Wrist Radiographs. HISTORY: s/p splint COMPARISON: None. FINDINGS: BONES: Status post close reduction comminuted distal radial and ulnar fractures. Near anatomic alignment achieved. Bony detail obscured by overlying fiberglass cast. No additional fracture identified. JOINTS: Normal. No dislocation. SOFT TISSUES: Normal. OTHER FINDINGS: None. IMPRESSION: Close reduction comminuted distal radial and ulnar fractures.
--- NOTE | 2018-07-25 19:14 | RAD ---
PROCEDURE: Left Hand Radiographs. HISTORY: s/p splint COMPARISON: None. FINDINGS: BONES: Near anatomic alignment achieved. Bony detail obscured by overlying fiberglass cast. No additional fracture identified. JOINTS: Normal. No osteoarthritic changes. SOFT TISSUES: Normal. OTHER FINDINGS: None. IMPRESSION: Close reduction comminuted distal radial and ulnar fractures.
[2018-07-26] MEDS ORDERED: Multivitamin (MVI) 10 ML, Thiamine 100 MG, Folic Acid 1 MG in Sodium Chloride 0.9% 1,00... IV ONE (06:22)
--- NOTE | 2018-07-26 07:25 | CP.PCM.CON ---
History of Present Illness - History of Present Illness History of Present Illness: CONSULTATION DICTATED SYNCOPE ETOH RELATED EEG/MRI ABSTINENCE ETOH MVT AND B1 NO SIGNS OF DT ORTHO TO FOLLOW Past Patient History - Past Medical History & Family History Past Medical History?: Yes - Past Social History Smoking Status: Light Smoker < 10 Cigarettes Daily - CARDIAC Hx Hypertension: Yes - PULMONARY Hx Respiratory Disorders: No - NEUROLOGICAL Hx Neurological Disorder: No - HEENT Hx HEENT Problems: No - RENAL Hx Chronic Kidney Disease: No - ENDOCRINE/METABOLIC Hx Endocrine Disorders: No - HEMATOLOGICAL/ONCOLOGICAL Hx Human Immunodeficiency Virus (HIV): No - INTEGUMENTARY Hx Dermatological Problems: No - MUSCULOSKELETAL/RHEUMATOLOGICAL Hx Arthritis: Yes Hx Falls: No - GASTROINTESTINAL Hx Gastrointestinal Disorders: No - GENITOURINARY/GYNECOLOGICAL Hx Genitourinary Disorders: No - PSYCHIATRIC Hx Substance Use: No - SURGICAL HISTORY Hx Surgeries: Yes Hx Open Reduction Internal Fixation: Yes (rt distal fibula) Other/Comment: epidural,[id number] - ANESTHESIA Hx Anesthesia: Yes Hx Anesthesia Reactions: No Hx Malignant Hyperthermia: No Meds Allergies/Adverse Reactions: Allergies Allergy/AdvReac Type Severity Reaction Status Date / Time No Known Allergies Allergy Verified 07/25/18 12:13 - Medications Medications: Current Medications Amlodipine Besylate (Norvasc) 10 mg PO DAILY [facility] Last Admin: 07/25/18 20:37 Dose: 10 mg Cefazolin Sodium 2 mg/ Sodium (Chloride) 50 mls @ 100 mls/hr IVPB Q8H GRACIELA; Protocol Last Admin: 07/26/18 06:48 Dose: 100 mls/hr Multivitamins/Vitamin C 10 ml/Thiamine HCl 100 mg/ Folic Acid 1 mg/ Sodium Chloride 1,011.2 mls @ 72 mls/hr IV .Q14H3M ONE Stop: 07/26/18 20:24 Thiamine HCl (Vitamin B1 Tab) 100 mg PO DAILY GRACIELA Tramadol HCl (Ultram) 50 mg PO TID PRN PRN Reason: Pain, moderate (4-7) Last Admin: 07/26/18 06:46 Dose: 50 mg Results - Vital Signs Recent Vital Signs: Last Vital Signs Temp 98.3 F 07/25/18 23:40 Pulse 82 07/25/18 23:40 Resp 20 07/25/18 23:40 BP 195/94 H 07/26/18 02:51 Pulse Ox 95 07/25/18 23:40 - Labs Result Diagrams: 07/25/18 12:55 07/25/18 12:55 Labs: Laboratory Results - last 24 hr 07/25/18 07/25/18 07/25/18 12:55 12:55 12:55 WBC 11.6 H RBC 4.07 L Hgb 13.3 Hct 39.2 MCV 96.2 H MCH 32.7 H MCHC 34.0 RDW 13.6 Plt Count 609 H MPV 7.3 Neut % (Auto) 84.9 H Lymph % (Auto) 7.1 L [place] % (Auto) 7.0 Eos % (Auto) 0.2 Baso % (Auto) 0.8 Neut # (Auto) 9.9 H Lymph # (Auto) 0.8 L [place] # (Auto) 0.8 Eos # (Auto) 0.0 Baso # (Auto) 0.1 Neutrophils % (Manual) 91 H Lymphocytes % (Manual) 4 L Monocytes % (Manual) 4 Eosinophils % (Manual) 1 Platelet Estimate Increased H RBC Morphology Normal PT 10.4 INR 1.0 APTT 33 pO2 VBG pH VBG pCO2 VBG HCO3 VBG Total CO2 VBG O2 Sat (Calc) VBG Base Excess VBG Potassium Glucose Lactate Sodium 125 L Potassium 4.6 Chloride 84 L Carbon Dioxide 26 Anion Gap 19 BUN 13 Creatinine 1.0 Est GFR ( Amer) > 60 Est GFR (Non-Af Amer) > 60 Random Glucose 97 Calcium 9.4 Total Bilirubin 0.6 AST 93 H ALT 38 Alkaline Phosphatase 106 Total Creatine Kinase 306 H Troponin I 0.0300 Total Protein 8.0 Albumin 5.2 H Globulin 2.8 Albumin/Globulin Ratio 1.8 Lipase 140 Venous Blood Potassium Alcohol, Quantitative 33 H Blood Type Antibody Screen 07/25/18 07/25/18 13:00 16:27 WBC RBC Hgb Hct MCV MCH MCHC RDW Plt Count MPV Neut % (Auto) Lymph % (Auto) [place] % (Auto) Eos % (Auto) Baso % (Auto) Neut # (Auto) Lymph # (Auto) [place] # (Auto) Eos # (Auto) Baso # (Auto) Neutrophils % (Manual) Lymphocytes % (Manual) Monocytes % (Manual) Eosinophils % (Manual) Platelet Estimate RBC Morphology PT INR APTT pO2 21 L VBG pH 7.39 VBG pCO2 44 VBG HCO3 24.1 VBG Total CO2 28.0 VBG O2 Sat (Calc) 33.4 L VBG Base Excess 1.2 VBG Potassium 4.1 Glucose 88 Lactate 3.7 H Sodium 127.0 L Potassium Chloride 90.0 L Carbon Dioxide Anion Gap BUN Creatinine Est GFR ( Amer) Est GFR (Non-Af Amer) Random Glucose Calcium Total Bilirubin AST ALT Alkaline Phosphatase Total Creatine Kinase Troponin I Total Protein Albumin Globulin Albumin/Globulin Ratio Lipase Venous Blood Potassium 4.1 Alcohol, Quantitative Blood Type A POSITIVE Antibody Screen Negative
[2018-07-26 08:19] LABS: BLOOD UREA NITROGEN 11 mg/dL (9-20); CALCIUM 9.2 mg/dl (8.6-10.4); GFR NON-AFRICAN AMERICAN > 60
--- NOTE | 2018-07-26 10:06 | CT ---
CT left forearm HISTORY: Fracture. COMPARISON: None available. Technique: Multiple contiguous axial images were performed through the left forearm without the use of intravenous contrast. Subsequently, sagittal and coronal reformatted images were obtained. This CT exam was performed using one or more of the following dose reduction techniques: Automated exposure control, adjustment of the mA and/or kV according to patient size, and/or use of iterative reconstruction technique. Findings: Overlying cast obscures fine osseous detail particularly at the level of the carpal rows. In addition, suboptimal patient positioning, markedly limits evaluation. Again identified are prominent comminuted, distracted, and angulated fracture deformities of the distal radius and ulna. Prominent dorsal sided distraction of the distal fracture fragments. Multiple adjacent comminuted fracture fragments. Evaluation for intra-articular involvement, particularly at the level of the radiocarpal articulation is markedly limited given the overlying cast and associated streak attenuation artifact. Transverse oblique fracture deformity through the midshaft of the 5th metacarpal bone. Evaluation of the carpal bones is markedly limited given the overlying cast and artifact. Suggestion of some questionable cortical irregularity at the dorsal aspect of the articulation of the trapezium and trapezoid bones as demonstrated on series 1106, image 20 as well as series 13, image 53 which may represent a small osseous injury. This may be better delineated with MRI. In addition, there is some questionable minimal cortical irregularity seen at the distal pole of the scaphoid on series 1106 images 23 and 24. Subtle osseous injury at this level cannot entirely be excluded. Correlation with MRI may be helpful if clinically indicated. Impression: Overlying cast obscures fine osseous detail particularly at the level of the carpal rows. In addition, suboptimal patient positioning, markedly limits evaluation. 1. Again identified are prominent comminuted, distracted, and angulated fracture deformities of the distal radius and ulna. Prominent dorsal sided distraction of the distal fracture fragments. Multiple adjacent comminuted fracture fragments. Evaluation for intra-articular involvement, particularly at the level of the radiocarpal articulation is markedly limited given the overlying cast and associated streak attenuation artifact. 2. Transverse oblique fracture deformity through the midshaft of the 5th metacarpal bone. 3. Evaluation of the carpal bones is markedly limited given the overlying cast and artifact. Suggestion of some questionable cortical irregularity at the dorsal aspect of the articulation of the trapezium and trapezoid bones as demonstrated on series 1106, image 20 as well as series 13, image 53 which may represent a small osseous injury. This may be better delineated with MRI. 4. In addition, there is some questionable minimal cortical irregularity seen at the distal pole of the scaphoid on series 1106 images 23 and 24. Subtle osseous injury at this level cannot entirely be excluded. Correlation with MRI may be helpful if clinically indicated. A preliminary report was generated at 9:08 p.m. on 07/25/[address] Eliazar Pete from [facility]. This case was placed in the PA review folder.
--- NOTE | 2018-07-26 10:54 | MRI ---
Date of service: 07/26/2018 PROCEDURE: MRI BRAIN WITHOUT CONTRAST HISTORY: r/o mass Vs delayed bleed COMPARISON: CT head without contrast from 07/25/2018. TECHNIQUE: Multiplanar, multisequence MR images of the brain were obtained without intravenous contrast enhancement. FINDINGS: HEMORRHAGE: None DWI: No evidence of an acute or early subacute infarction. BRAIN PARENCHYMA: There are mild chronic microangiopathic changes. There is no mass, mass effect or abnormal extra-axial fluid collection. There is no territorial infarction. The midline sagittal structures are normal. VENTRICLES: There is mild age-related global parenchymal volume loss and proportionate enlargement of the ventricles and cortical sulci. CRANIUM: There is normal bone marrow signal pattern. ORBITS: Grossly unremarkable. PARANASAL SINUSES/MASTOIDS: Predominantly clear. VASCULAR SYSTEM: There are normal signal voids in the larger intracranial arteries. OTHER FINDINGS: There is moderate degenerative osteoarthrosis in the atlantoaxial joint and a subarticular T1 hypointense lesion in the odontoid process which likely represents subarticular cyst/geode. IMPRESSION: No acute intracranial abnormality. Mild chronic microangiopathic changes and mild age-related global parenchymal volume loss. 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 If clinically indicated, correlation with MRI of the cervical spine without and with intravenous contrast may be performed for definitive evaluation.
[2018-07-26] MEDS: Enoxaparin 40 mg Syringe SC SCH (10:59)
--- NOTE | 2018-07-26 10:59 | CON ---
DATE: 07/26/2018 REASON FOR CONSULTATION: Status post fall and syncope. CHIEF COMPLAINT: The patient was brought in to [facility] with history of a fall and found his arm with possible fracture. From neurological point of view, I was called in to evaluate his syncopal episode. HISTORY OF PRESENT ILLNESS: Mr. Darrin Mott is a 68-year-old right-handed normally built male presenting with, while he was walking to the bedroom, he just sat on the bed. Next thing, he realized he passed out and fell down on the floor. He could not recall what went through. No obvious witnessed tonic-clonic seizure activities or bowel or bladder incontinence at the scene. No history of head trauma. No history of head injuries. However, from the fall, he injured his left arm that brought him to the hospital. PAST MEDICAL HISTORY: History of stroke, losing his balance in the past. History of hypertension, arthritis and history of alcohol abuse. He drinks six packs of beer every day. ALLERGIES: NO KNOWN ALLERGIES. REVIEW OF SYSTEMS: A 12-point system being reviewed. From neuro, new onset of syncope. MEDICATIONS: Cefazolin, Norvasc, Ultram. PHYSICAL EXAMINATION: VITAL SIGNS: Blood pressure 195/94, mean arterial pressure of 127, respiratory rate 18, temperature afebrile. NECK: Supple. No carotid bruits. HEART: Sounds are regular. CHEST: Fair air entry. EXTREMITIES: No edema in legs. NEUROLOGIC: Mental status examination, he is awake, alert and oriented to person, place and time. Significant retrograde amnesia. No antegrade amnesia. No hallucination. No suicidal ideation. Cranial nerve examination, visual field intact. Pupils reactive to light. Extraocular movement normal. No nystagmus. No facial sensory deficit. No facial asymmetry. Hearing is normal. Tongue is midline. Good gag. Motor examination, outstretched hand with eyes closed, no drift noted. Left arm is splinted due to his fracture in his metacarpal bone. He can able to lift his both lower extremities against the gravity. Significant atrophy noted in distal muscle groups. Deep tendon reflexes are absent. Plantars are mute. Sensory examination, significant distal sensory motor neuropathy. Coordination normal on his right side. CONCLUSION: On reviewing his history and gathered from him and medical records, as per neurological examination, the patient did have a syncopal attack from neurological point of view, probably alcohol-related blackout versus seizures. However, other possible causes of vertebrobasilar insufficiency should be ruled out. From a cardiac point of view of knowing that he is hypertensive, cardiac arrhythmias or infarction should be worked up during the hospitalization. His workup, CT of the head being reviewed, no acute pathology is noted. Blood workup, WBC 11.6, hemoglobin 13.3, hematocrit 39.2, platelet 609. PT 10.4, INR 1, PTT 33. Sodium 125, potassium 4.6, chloride 84, bicarbonate 26, GFR more than 60, CPK is 306. Alcohol level was more than 33. RECOMMENDATIONS: 1. Vitamins and B1 supplements to be given. No sign of DT at this time. 2. Ativan can be given if any change in mental status or any agitation. 3. Electroencephalogram to rule out seizures. 4. Blood workup as per the order. 5. MRI of the brain to rule out any ischemic process versus a mass. 6. Abstinence from alcohol been discussed with the patient. The patient will be followed closely with you. Jaciel Ruiz MD
--- NOTE | 2018-07-26 11:41 | CP.PCM.PN ---
Subjective - Date & Time of Evaluation Date of Evaluation: 07/26/18 Time of Evaluation: 16:19 - Subjective Subjective: Patient states pain is controlled. Denies numbness/tingling. Objective - Vital Signs/Intake and Output Vital Signs (last 24 hours): Temp Pulse Resp BP Pulse Ox 98.4 F 76 20 169/90 H 97 07/26/18 08:27 07/26/18 09:15 07/26/18 08:27 07/26/18 08:27 07/26/18 08:27 - Medications Medications: Current Medications Amlodipine Besylate (Norvasc) 10 mg PO DAILY [facility] Last Admin: 07/26/18 10:58 Dose: 10 mg Chlordiazepoxide (Librium) 25 mg PO Q8 PRN PRN Reason: Agitation Enoxaparin Sodium (Lovenox) 40 mg SC DAILY [facility] Last Admin: 07/26/18 10:59 Dose: 40 mg Multivitamins/Vitamin C 10 ml/Thiamine HCl 100 mg/ Folic Acid 1 mg/ Sodium Chloride 1,011.2 mls @ 72 mls/hr IV .Q14H3M ONE Stop: 07/26/18 20:24 Last Admin: 07/26/18 10:57 Dose: 72 mls/hr Cefazolin Sodium 2,000 mg/ (Sodium Chloride) 50 mls @ 100 mls/hr IVPB Q8H [facility]; Protocol Thiamine HCl (Vitamin B1 Tab) 100 mg PO DAILY [facility] Last Admin: 07/26/18 10:58 Dose: 100 mg Tramadol HCl (Ultram) 50 mg PO TID PRN PRN Reason: Pain, moderate (4-7) Last Admin: 07/26/18 06:46 Dose: 50 mg - Labs Labs: 07/25/18 12:55 07/26/18 07:56 PT 10.4 SECONDS (9.7-12.2) 07/25/18 12:55 INR 1.0 07/25/18 12:55 APTT 33 SECONDS (21-34) 07/25/18 12:55 - Extremities Exam Additional comments: Left wrist: +ROM fingers/thumb flex/ext/abd/add, sensation intact to med/rad/ulnar nerves, +cap refill, splintn intact, holly tape intact Assessment and Plan (1) Open fracture of distal end of left radius Assessment & Plan: s/p bedside washout Will need ORIF after patient medically optimized and when swelling subsides, will plan for Monday if patient still in house continue ancef for open fracture elevate keep splint dry and intact will follow awaiting med/cardio/neuro optimization for surgery d/w Dr. Lilly, agrees with above Status: Acute (2) Fracture of fifth metacarpal bone of left hand Status: Acute (3) Fracture of phalanx of finger of left hand Status: Acute (4) Left ulnar fracture Status: Acute Radiology Interpretation - Radiology Interpretation #3 Interpretation: atient Name / ID : MIRNA MANZO / [id number] Exam Date : 07/25/2018 17:08:31 ( Approved ) Study Comment : Sex / Age : M / 68Y Creator : Kwesi Nation MD Dictator : Kwesi Nation MD Cutting Supervisor : [employer] Assistant Manager : Kwesi Nation MD Approver2 : Report Date : 07/26/2018 10:03:20 My Comment : CT left forearm HISTORY: Fracture. COMPARISON: None available. Technique: Multiple contiguous axial images were performed through the left forearm without the use of intravenous contrast. Subsequently, sagittal and coronal reformatted images were obtained. This CT exam was performed using one or more of the following dose reduction techniques: Automated exposure control, adjustment of the mA and/or kV according to patient size, and/or use of iterative reconstruction technique. Findings: Overlying cast obscures fine osseous detail particularly at the level of the carpal rows. In addition, suboptimal patient positioning, markedly limits evaluation. Again identified are prominent comminuted, distracted, and angulated fracture deformities of the distal radius and ulna. Prominent dorsal sided distraction of the distal fracture fragments. Multiple adjacent comminuted fracture fragments. Evaluation for intra-articular involvement, particularly at the level of the radiocarpal articulation is markedly limited given the overlying cast and associated streak attenuation artifact. Transverse oblique fracture deformity through the midshaft of the 5th metacarpal bone. Evaluation of the carpal bones is markedly limited given the overlying cast and artifact. Suggestion of some questionable cortical irregularity at the dorsal aspect of the articulation of the trapezium and trapezoid bones as demonstrated on series 1106, image 20 as well as series 13, image 53 which may represent a small osseous injury. This may be better delineated with MRI. In addition, there is some questionable minimal cortical irregularity seen at the distal pole of the scaphoid on series 1106 images 23 and 24. Subtle osseous injury at this level cannot entirely be excluded. Correlation with MRI may be helpful if clinically indicated. Impression: Overlying cast obscures fine osseous detail particularly at the level of the carpal rows. In addition, suboptimal patient positioning, markedly limits evaluation. 1. Again identified are prominent comminuted, distracted, and angulated fracture deformities of the distal radius and ulna. Prominent dorsal sided distraction of the distal fracture fragments. Multiple adjacent comminuted fracture fragments. Evaluation for intra-articular involvement, particularly at the level of the radiocarpal articulation is markedly limited given the overlying cast and associated streak attenuation artifact. 2. Transverse oblique fracture deformity through the midshaft of the 5th metacarpal bone. 3. Evaluation of the carpal bones is markedly limited given the overlying cast and artifact. Suggestion of some questionable cortical irregularity at the dorsal aspect of the articulation of the trapezium and trapezoid bones as demonstrated on series 1106, image 20 as well as series 13, image 53 which may represent a small osseous injury. This may be better delineated with MRI. 4. In addition, there is some questionable minimal cortical irregularity seen at the distal pole of the scaphoid on series 1106 images 23 and 24. Subtle osseous injury at this level cannot entirely be excluded. Correlation with MRI may be helpful if clinically indicated. A preliminary report was generated at 9:08 p.m. on 07/25/[address] Eliazar Pete from [facility]. This case was placed in the PA review folder.
--- NOTE | 2018-07-26 12:15 | CP.PCM.CON ---
History of Present Illness - History of Present Illness History of Present Illness: CC: Mechanical fall HPI: 68 year old man with ASHD chronic and poorly controlled, COPD chornic and abuses tobacco, Cerebrovascular disease s/p CVA in 2010 now with gait disturbance He is reporting severe left hand pain. Pain is sharp. Pain occured in the setting of mechanical fall and fracture. Pain is modified with tramdol Past Patient History - Past Medical History & Family History Past Medical History?: Yes - Past Social History Smoking Status: Light Smoker < 10 Cigarettes Daily - CARDIAC Hx Hypertension: Yes - PULMONARY Hx Respiratory Disorders: No - NEUROLOGICAL Hx Neurological Disorder: No - HEENT Hx HEENT Problems: No - RENAL Hx Chronic Kidney Disease: No - ENDOCRINE/METABOLIC Hx Endocrine Disorders: No - HEMATOLOGICAL/ONCOLOGICAL Hx Human Immunodeficiency Virus (HIV): No - INTEGUMENTARY Hx Dermatological Problems: No - MUSCULOSKELETAL/RHEUMATOLOGICAL Hx Arthritis: Yes Hx Falls: No - GASTROINTESTINAL Hx Gastrointestinal Disorders: No - GENITOURINARY/GYNECOLOGICAL Hx Genitourinary Disorders: No - PSYCHIATRIC Hx Substance Use: No - SURGICAL HISTORY Hx Surgeries: Yes Hx Open Reduction Internal Fixation: Yes (rt distal fibula) Other/Comment: epidural,[id number] - ANESTHESIA Hx Anesthesia: Yes Hx Anesthesia Reactions: No Hx Malignant Hyperthermia: No Meds Allergies/Adverse Reactions: Allergies Allergy/AdvReac Type Severity Reaction Status Date / Time No Known Allergies Allergy Verified 07/25/18 12:13 - Medications Medications: Current Medications Amlodipine Besylate (Norvasc) 10 mg PO DAILY [facility] Last Admin: 07/26/18 10:58 Dose: 10 mg Chlordiazepoxide (Librium) 25 mg PO Q8 PRN PRN Reason: Agitation Enoxaparin Sodium (Lovenox) 40 mg SC DAILY [facility] Last Admin: 07/26/18 10:59 Dose: 40 mg Multivitamins/Vitamin C 10 ml/Thiamine HCl 100 mg/ Folic Acid 1 mg/ Sodium Chloride 1,011.2 mls @ 72 mls/hr IV .Q14H3M ONE Stop: 07/26/18 20:24 Last Admin: 07/26/18 10:57 Dose: 72 mls/hr Cefazolin Sodium 2,000 mg/ (Sodium Chloride) 50 mls @ 100 mls/hr IVPB Q8H [facility]; Protocol Thiamine HCl (Vitamin B1 Tab) 100 mg PO DAILY [facility] Last Admin: 07/26/18 10:58 Dose: 100 mg Tramadol HCl (Ultram) 50 mg PO TID PRN PRN Reason: Pain, moderate (4-7) Last Admin: 07/26/18 06:46 Dose: 50 mg Physical Exam - Constitutional Appears: Well, Non-toxic - Head Exam Head Exam: ATRAUMATIC, NORMAL INSPECTION - Eye Exam Eye Exam: PERRL. absent: Scleral icterus - ENT Exam ENT Exam: Mucous Membranes Moist, Normal External Ear Exam - Neck Exam Neck exam: Negative for: Lymphadenopathy, Thyromegaly - Respiratory Exam Respiratory Exam: Clear to Auscultation Bilateral, NORMAL BREATHING PATTERN - Cardiovascular Exam Cardiovascular Exam: REGULAR RHYTHM, RRR, +S1, +S2. absent: JVD - GI/Abdominal Exam GI & Abdominal Exam: Normal Bowel Sounds. absent: Organomegaly - Extremities Exam Extremities exam: Negative for: calf tenderness, pedal edema Additional comments: Left arm in splint with dressing c/d/I - Neurological Exam Neurological exam: CN II-XII Intact, Oriented x3 - Psychiatric Exam Psychiatric exam: Normal Affect, Normal Mood Results - Vital Signs Recent Vital Signs: Last Vital Signs Temp 98.4 F 07/26/18 08:27 Pulse 76 07/26/18 09:15 Resp 20 07/26/18 08:27 BP 169/90 H 07/26/18 08:27 Pulse Ox 97 07/26/18 08:27 - Labs Result Diagrams: 07/25/18 12:55 07/26/18 07:56 Labs: Laboratory Results - last 24 hr 07/25/18 07/25/18 07/25/18 12:55 12:55 12:55 WBC 11.6 H RBC 4.07 L Hgb 13.3 Hct 39.2 MCV 96.2 H MCH 32.7 H MCHC 34.0 RDW 13.6 Plt Count 609 H MPV 7.3 Neut % (Auto) 84.9 H Lymph % (Auto) 7.1 L Harrison % (Auto) 7.0 Eos % (Auto) 0.2 Baso % (Auto) 0.8 Neut # (Auto) 9.9 H Lymph # (Auto) 0.8 L Harrison # (Auto) 0.8 Eos # (Auto) 0.0 Baso # (Auto) 0.1 Neutrophils % (Manual) 91 H Lymphocytes % (Manual) 4 L Monocytes % (Manual) 4 Eosinophils % (Manual) 1 Platelet Estimate Increased H RBC Morphology Normal PT 10.4 INR 1.0 APTT 33 pO2 VBG pH VBG pCO2 VBG HCO3 VBG Total CO2 VBG O2 Sat (Calc) VBG Base Excess VBG Potassium Glucose Lactate Sodium 125 L Potassium 4.6 Chloride 84 L Carbon Dioxide 26 Anion Gap 19 BUN 13 Creatinine 1.0 Est GFR ( Amer) > 60 Est GFR (Non-Af Amer) > 60 Random Glucose 97 Serum Osmolality Calcium 9.4 Total Bilirubin 0.6 AST 93 H ALT 38 Alkaline Phosphatase 106 Total Creatine Kinase 306 H Troponin I 0.0300 Total Protein 8.0 Albumin 5.2 H Globulin 2.8 Albumin/Globulin Ratio 1.8 Lipase 140 Prolactin Venous Blood Potassium Alcohol, Quantitative 33 H Blood Type Antibody Screen 07/25/18 07/25/18 07/26/18 13:00 16:27 07:56 WBC RBC Hgb Hct MCV MCH MCHC RDW Plt Count MPV Neut % (Auto) Lymph % (Auto) Harrison % (Auto) Eos % (Auto) Baso % (Auto) Neut # (Auto) Lymph # (Auto) Harrison # (Auto) Eos # (Auto) Baso # (Auto) Neutrophils % (Manual) Lymphocytes % (Manual) Monocytes % (Manual) Eosinophils % (Manual) Platelet Estimate RBC Morphology PT INR APTT pO2 21 L VBG pH 7.39 VBG pCO2 44 VBG HCO3 24.1 VBG Total CO2 28.0 VBG O2 Sat (Calc) 33.4 L VBG Base Excess 1.2 VBG Potassium 4.1 Glucose 88 Lactate 3.7 H Sodium 127.0 L Potassium Chloride 90.0 L Carbon Dioxide Anion Gap BUN Creatinine Est GFR ( Amer) Est GFR (Non-Af Amer) Random Glucose Serum Osmolality 267 L Calcium Total Bilirubin AST ALT Alkaline Phosphatase Total Creatine Kinase Troponin I Total Protein Albumin Globulin Albumin/Globulin Ratio Lipase Prolactin Venous Blood Potassium 4.1 Alcohol, Quantitative Blood Type A POSITIVE Antibody Screen Negative 07/26/18 07/26/18 07:56 07:56 WBC RBC Hgb Hct MCV MCH MCHC RDW Plt Count MPV Neut % (Auto) Lymph % (Auto) Harrison % (Auto) Eos % (Auto) Baso % (Auto) Neut # (Auto) Lymph # (Auto) Harrison # (Auto) Eos # (Auto) Baso # (Auto) Neutrophils % (Manual) Lymphocytes % (Manual) Monocytes % (Manual) Eosinophils % (Manual) Platelet Estimate RBC Morphology PT INR APTT pO2 VBG pH VBG pCO2 VBG HCO3 VBG Total CO2 VBG O2 Sat (Calc) VBG Base Excess VBG Potassium Glucose Lactate Sodium 126 L Potassium 3.8 Chloride 91 L Carbon Dioxide 25 Anion Gap 15 BUN 11 Creatinine 0.7 L Est GFR ( Amer) > 60 Est GFR (Non-Af Amer) > 60 Random Glucose 93 Serum Osmolality Calcium 9.2 Total Bilirubin AST ALT Alkaline Phosphatase Total Creatine Kinase Troponin I Total Protein Albumin Globulin Albumin/Globulin Ratio Lipase Prolactin 10.7 Venous Blood Potassium Alcohol, Quantitative Blood Type Antibody Screen - EKG Data EKG Interpreted by: Myself EKG shows normal: Sinus rhythm Rate: Normal - Imaging and Cardiology Chest x-ray Status: Image reviewed by me Additional comment: No infiltrates or effusions Assessment & Plan - Assessment and Plan (Free Text) Assessment: 68 year old man with distal ulnar and radial fracture of left extremity, occured in the setting of mechanical fall from prior gait disturbance. MRI is negative for CVA, Telemetry to monitor for Vtach or Vfib x 24 hours. Myocardial infarction I would order serial troponin to rule out NSTEMI, I would order serial EKG to evaluate for ischemia HTN is poorly controlled likely due to pain, pain management. Agree with norvasc will titrate antihypertensives as pain is controlled - Date & Time Date: 07/26/18 Time: 13:01
[2018-07-26 17:17] LABS: CK-MB 1.24 ng/mL (0.0-3.38)
--- NOTE | 2018-07-26 18:18 | CARD ---
APPROVED REPORT Date of service: 07/25/2018 EKG Measurement Heart [id number] <Conclusion> Sinus rhythm with premature atrial complexes Nonspecific ST abnormality Abnormal ECG
[2018-07-27] MEDS ORDERED: Ergocalciferol 50,000 Intl Units Cap PO SCH (08:00)
[2018-07-27 08:01] LABS: ALB/GLOB RATIO 1.5 (1.0-2.1); ALBUMIN 4.1 g/dL (3.5-5.0); ALT/SGPT 24 U/L (21-72); AST/SGOT 50 U/L (17-59); BLOOD UREA NITROGEN 10 mg/dL (9-20); GFR NON-AFRICAN AMERICAN > 60
[2018-07-27 08:02] LABS: BASO # 0.1 K/uL (0.0-0.2); BASO % 0.6 % (0.0-2.0); EOS # 0.3 K/uL (0.0-0.7); HEMOGLOBIN 12.8 g/dL (12.0-18.0); LYMPH # 1.4 K/uL (1.0-4.3); LYMPH % 16.4 % (20.0-40.0); MEAN CELL VOLUME 96.7 fL (80.0-94.0); MEAN CORPUSCULAR HEMOGLOBIN 33.3 pg (27.0-31.0); MEAN CORPUSCULAR HGB CONC 34.5 g/dL (33.0-37.0); MEAN PLATELET VOLUME 7.3 fL (7.2-11.7); MONO # 0.9 K/uL (0.0-0.8); NEUT # 5.7 K/uL (1.8-7.0); NRBC % 0.1 % (0.0-2.0); RBC 3.85 Mil/uL (4.40-5.90); WHITE BLOOD COUNT 8.3 K/uL (4.8-10.8)
[2018-07-27] MEDS: Enoxaparin 40 mg Syringe SC SCH (09:26)
--- NOTE | 2018-07-27 12:21 | PN ---
DATE: 07/27/2018 NEUROLOGICAL PROBLEM: Syncopal attack. PHYSICAL EXAMINATION: VITAL SIGNS: Blood pressure 191/95, mean artery pressure around 27, respiratory rate 18. The patient's examination which is unchanged to compare with my previous examination. The patient did have electroencephalogram which showed bilateral slow activities without any paroxysmal activities. There is some brief period of polyphasic activities which lasted for about 2 seconds without any significant clinical importance at present. 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 Continue the present management. MRI of the brain, which was reported as no new acute pathology, is noted except chronic microangiopathic changes. Continue vitamins. Hydration. Jaciel Ruiz MD
--- NOTE | 2018-07-27 13:46 | CP.PCM.PN ---
Subjective - Date & Time of Evaluation Date of Evaluation: 07/27/18 Time of Evaluation: 13:45 - Subjective Subjective: Patient states pain in wrist is controlled. Dnies numbness/tingling. No new complaints. Left wrist: +ROM fingers/thumb flex/ext/abd/add, sensation intact to med/rad/ulnar nerves, +cap refill, splintn intact, holly tape intact Objective - Vital Signs/Intake and Output Vital Signs (last 24 hours): Temp Pulse Resp BP Pulse Ox 97.9 F 90 20 176/90 H 97 07/27/18 07:00 07/27/18 07:00 07/27/18 07:00 07/27/18 07:00 07/27/18 07:00 - Medications Medications: Current Medications Amlodipine Besylate (Norvasc) 10 mg PO DAILY [facility] Last Admin: 07/27/18 09:26 Dose: 10 mg Chlordiazepoxide (Librium) 25 mg PO Q8 PRN PRN Reason: Agitation Enoxaparin Sodium (Lovenox) 40 mg SC DAILY [facility] Last Admin: 07/27/18 09:26 Dose: 40 mg Ergocalciferol (Drisdol 50,000 Intl Units Cap) 1 cap PO Q7D [facility] Hydralazine HCl (Apresoline) 25 mg PO Q8 [facility] Cefazolin Sodium 2,000 mg/ (Sodium Chloride) 50 mls @ 100 mls/hr IVPB Q8H [facility]; Protocol Last Admin: 07/27/18 06:10 Dose: 100 mls/hr Losartan Potassium (Cozaar) 25 mg PO DAILY [facility] Thiamine HCl (Vitamin B1 Tab) 100 mg PO DAILY [facility] Last Admin: 07/27/18 09:26 Dose: 100 mg Tramadol HCl (Ultram) 50 mg PO TID PRN PRN Reason: Pain, moderate (4-7) Last Admin: 07/27/18 02:16 Dose: 50 mg - Labs Labs: 07/27/18 06:37 07/27/18 06:37 PT 10.4 SECONDS (9.7-12.2) 07/25/18 12:55 INR 1.0 07/25/18 12:55 APTT 33 SECONDS (21-34) 07/25/18 12:55 Assessment and Plan (1) Open fracture of distal end of left radius Assessment & Plan: For ORIF left distal radius on Monday pending medical optimization neuro/cardio consultations appreciated, awaiting risk stratification/clearance for OR elevation ice keep splint dry intact monitor Na, improving today d/w Dr. Lilly, agrees witholamide harden Status: Acute (2) Fracture of fifth metacarpal bone of left hand Status: Acute (3) Fracture of phalanx of finger of left hand Status: Acute (4) Left ulnar fracture Status: Acute
--- NOTE | 2018-07-27 16:23 | CARD ---
APPROVED REPORT Date of service: 07/27/2018 EXAM: Two-dimensional and M-mode echocardiogram with Doppler and color Doppler. INDICATION Syncope Pre op 2D DIMENSIONS IVSd1.0 (0.7-1.1cm)Aortic Root (2D)3.7 (2.0-3.7cm) LVDd5.2 (3.9-5.9cm)PWd1.1 (0.7-1.1cm) LA Blozzr19 (18-58mL)LVDs2.9 (2.5-4.0cm) FS (%) 43.7 %LVEF (%)65.0 (>50%) LVEF (Vail's)60.13 %IVC0.00 cm M-Mode DIMENSIONS Left Atrium (MM)2.44 (2.5-4.0cm)IVSd0.78 (0.7-1.1cm) Aortic Root3.25 (2.2-3.7cm)LVDd5.92 (4.0-5.6cm) Aortic Cusp Exc.2.25 (1.5-2.0cm)PWd0.98 (0.7-1.1cm) FS (%) 31 %LVDs4.07 (2.0-3.8cm) TAPSE19.44 cmLVEF (%)58 (>50%) Mitral Valve MV E Zsoizdur55.5cm/sMV A Hjwaiuvm66.5cm/sE/A ratio0.7 TDI Lateral E' Peak V12.93cm/sMedial E' Peak V4.87cm/sE/Lateral E'3.9 E/Medial E'10.4 Tricuspid Valve TR Peak Djdkfadu688jr/sTR Peak Gr.[id number] LEFT VENTRICLE The left ventricle is normal size. There is borderline concentric left ventricular hypertrophy. Left ventricle systolic function is normal. The Ejection Fraction is 60-65%. There is normal LV segmental wall motion. Transmitral Doppler flow pattern is Grade I-abnormal relaxation pattern. There is no ventricular septal defect visualized. RIGHT VENTRICLE The right ventricle is normal size. The right ventricular systolic function is normal. ATRIA The left atrium is mildly dilated. The right atrium size is normal. AORTIC VALVE The aortic valve is mildly sclerotic. The aortic valve is tri-cuspid. No aortic regurgitation is present. There is no aortic valvular stenosis. MITRAL VALVE The mitral valve is normal in structure. There is no evidence of mitral valve prolapse. Mitral regurgitation is trace. TRICUSPID VALVE The tricuspid valve is normal in structure. There is trace tricuspid regurgitation. Right ventricular systolic pressure is estimated at 30-40 mmHg. There is mild pulmonary hypertension. PULMONIC VALVE The pulmonic valve is not well visualized. There is no pulmonic valvular regurgitation. GREAT VESSELS The aortic root is normal in size. The ascending aorta is normal in size. The IVC is normal in size and collapses >50% with inspiration. PERICARDIAL EFFUSION There is no pericardial effusion. <Conclusion> There is borderline concentric left ventricular hypertrophy. Left ventricle systolic function is normal. The Ejection Fraction is 60-65%. Transmitral Doppler flow pattern is Grade I-abnormal relaxation pattern. Mitral regurgitation is trace. There is mild pulmonary hypertension.
--- NOTE | 2018-07-27 18:58 | CP.PCM.PN ---
Subjective - Date & Time of Evaluation Date of Evaluation: 07/27/18 Time of Evaluation: 19:08 - Subjective Subjective: No cardiac complaints No fevers or chills BP remains high FOR ORIF monday Objective - Vital Signs/Intake and Output Vital Signs (last 24 hours): Temp Pulse Resp BP Pulse Ox 98.7 F 78 20 160/83 H 98 07/27/18 15:00 07/27/18 15:15 07/27/18 15:00 07/27/18 15:00 07/27/18 15:00 - Medications Medications: Current Medications Amlodipine Besylate (Norvasc) 10 mg PO DAILY [facility] Last Admin: 07/27/18 09:26 Dose: 10 mg Chlordiazepoxide (Librium) 25 mg PO Q8 PRN PRN Reason: Agitation Enoxaparin Sodium (Lovenox) 40 mg SC DAILY [facility] Last Admin: 07/27/18 09:26 Dose: 40 mg Ergocalciferol (Drisdol 50,000 Intl Units Cap) 1 cap PO Q7D [facility] Last Admin: 07/27/18 15:03 Dose: 1 cap Hydralazine HCl (Apresoline) 25 mg PO Q8 [facility] Last Admin: 07/27/18 15:03 Dose: 25 mg Cefazolin Sodium 2,000 mg/ (Sodium Chloride) 50 mls @ 100 mls/hr IVPB Q8H [facility]; Protocol Last Admin: 07/27/18 14:59 Dose: 100 mls/hr Losartan Potassium (Cozaar) 25 mg PO DAILY [facility] Last Admin: 07/27/18 17:29 Dose: 25 mg Thiamine HCl (Vitamin B1 Tab) 100 mg PO DAILY [facility] Last Admin: 07/27/18 09:26 Dose: 100 mg Tramadol HCl (Ultram) 50 mg PO TID PRN PRN Reason: Pain, moderate (4-7) Last Admin: 07/27/18 02:16 Dose: 50 mg - Labs Labs: 07/27/18 06:37 07/27/18 06:37 PT 10.4 SECONDS (9.7-12.2) 07/25/18 12:55 INR 1.0 07/25/18 12:55 APTT 33 SECONDS (21-34) 07/25/18 12:55 - Constitutional Appears: No Acute Distress - Head Exam Head Exam: ATRAUMATIC, NORMAL INSPECTION, NORMOCEPHALIC - Eye Exam Eye Exam: absent: Scleral icterus - ENT Exam ENT Exam: Mucous Membranes Moist, Normal Oropharynx - Respiratory Exam Respiratory Exam: Clear to Ausculation Bilateral, NORMAL BREATHING PATTERN. absent: Rhonchi, Wheezes - Cardiovascular Exam Cardiovascular Exam: REGULAR RHYTHM, +S1, +S2. absent: JVD - GI/Abdominal Exam GI & Abdominal Exam: Soft. absent: Tenderness, Organomegaly, Pulsatile Mass - Extremities Exam Extremities Exam: Normal Inspection. absent: Calf Tenderness, Pedal Edema Additional comments: L. arm cast - Neurological Exam Neurological Exam: Alert, Awake, Oriented x3 Assessment and Plan - Assessment and Plan (Free Text) Assessment: 68 year old man hx old CVA 2010 with distal ulnar and radial fracture of left extremity, occured in the setting of mechanical fall from prior gait disturbance. MRI is negative for Acute CVA, Telemetry: CARDIAC TROPONIN NEGATIVE FOR ACS; EKG image seen by me: NSR, Pacs, non- specific ST changes Normal LVEF and wall motion with grade 1 DD, mild pulm HTN on echo (images viewed by me) HTN is poorly controlled likely due to pain, pain management. - increase losartan to 50mg, can increase hydralazine to 50 q8, cont norvasc 10 FOR ORIF left distal radius: Monday Patient is acceptable risk to proceed with surgery with optimal BP control > f/u and monitor sodium and lytes (mild hyponatremia noted)
--- NOTE | 2018-07-27 19:55 | CP.PCM.PN ---
Subjective - Date & Time of Evaluation Date of Evaluation: 07/27/18 Time of Evaluation: 10:45 - Subjective Subjective: clinically same Objective - Vital Signs/Intake and Output Vital Signs (last 24 hours): Temp Pulse Resp BP Pulse Ox 98.7 F 78 20 160/83 H 98 07/27/18 15:00 07/27/18 15:15 07/27/18 15:00 07/27/18 15:00 07/27/18 15:00 - Medications Medications: Current Medications Amlodipine Besylate (Norvasc) 10 mg PO DAILY [facility] Last Admin: 07/27/18 09:26 Dose: 10 mg Chlordiazepoxide (Librium) 25 mg PO Q8 PRN PRN Reason: Agitation Enoxaparin Sodium (Lovenox) 40 mg SC DAILY [facility] Last Admin: 07/27/18 09:26 Dose: 40 mg Ergocalciferol (Drisdol 50,000 Intl Units Cap) 1 cap PO Q7D [facility] Last Admin: 07/27/18 15:03 Dose: 1 cap Hydralazine HCl (Apresoline) 50 mg PO Q8 [facility] Cefazolin Sodium 2,000 mg/ (Sodium Chloride) 50 mls @ 100 mls/hr IVPB Q8H [facility]; Protocol Last Admin: 07/27/18 14:59 Dose: 100 mls/hr Losartan Potassium (Cozaar) 50 mg PO DAILY [facility] Thiamine HCl (Vitamin B1 Tab) 100 mg PO DAILY [facility] Last Admin: 07/27/18 09:26 Dose: 100 mg Tramadol HCl (Ultram) 50 mg PO TID PRN PRN Reason: Pain, moderate (4-7) Last Admin: 07/27/18 19:24 Dose: 50 mg - Labs Labs: 07/27/18 06:37 07/27/18 06:37 PT 10.4 SECONDS (9.7-12.2) 07/25/18 12:55 INR 1.0 07/25/18 12:55 APTT 33 SECONDS (21-34) 07/25/18 12:55
[2018-07-28 06:56] LABS: BLOOD UREA NITROGEN 13 mg/dL (9-20); CALCIUM 9.1 mg/dl (8.6-10.4); GFR NON-AFRICAN AMERICAN > 60
[2018-07-28] MEDS: Enoxaparin 40 mg Syringe SC SCH (10:00)
--- NOTE | 2018-07-28 14:26 | CP.PCM.PN ---
Subjective - Date & Time of Evaluation Date of Evaluation: 07/28/18 Time of Evaluation: 10:45 - Subjective Subjective: clinically same Objective - Vital Signs/Intake and Output Vital Signs (last 24 hours): Temp Pulse Resp BP Pulse Ox 98.0 F 86 20 131/76 94 L 07/28/18 08:32 07/28/18 08:32 07/28/18 08:32 07/28/18 08:32 07/28/18 08:32 - Medications Medications: Current Medications Amlodipine Besylate (Norvasc) 10 mg PO DAILY [facility] Last Admin: 07/28/18 10:07 Dose: 10 mg Chlordiazepoxide (Librium) 25 mg PO Q8 PRN PRN Reason: Agitation Last Admin: 07/28/18 10:00 Dose: 25 mg Enoxaparin Sodium (Lovenox) 40 mg SC DAILY [facility] Last Admin: 07/28/18 10:00 Dose: 40 mg Ergocalciferol (Drisdol 50,000 Intl Units Cap) 1 cap PO Q7D [facility] Last Admin: 07/27/18 15:03 Dose: 1 cap Hydralazine HCl (Apresoline) 50 mg PO Q8 [facility] Last Admin: 07/28/18 05:43 Dose: 50 mg Cefazolin Sodium 2,000 mg/ (Sodium Chloride) 50 mls @ 100 mls/hr IVPB Q8H [facility]; Protocol Last Admin: 07/28/18 06:07 Dose: 100 mls/hr Losartan Potassium (Cozaar) 50 mg PO DAILY [facility] Last Admin: 07/28/18 10:00 Dose: 50 mg Thiamine HCl (Vitamin B1 Tab) 100 mg PO DAILY [facility] Last Admin: 07/28/18 10:00 Dose: 100 mg Tramadol HCl (Ultram) 50 mg PO TID PRN PRN Reason: Pain, moderate (4-7) Last Admin: 07/28/18 10:00 Dose: 50 mg - Labs Labs: 07/27/18 06:37 07/28/18 06:28 PT 10.4 SECONDS (9.7-12.2) 07/25/18 12:55 INR 1.0 07/25/18 12:55 APTT 33 SECONDS (21-34) 07/25/18 12:55 - Constitutional Appears: Well - Head Exam Head Exam: ATRAUMATIC, NORMAL INSPECTION, NORMOCEPHALIC - Eye Exam Eye Exam: EOMI, Normal appearance, PERRL Pupil Exam: NORMAL ACCOMODATION, PERRL - ENT Exam ENT Exam: Mucous Membranes Moist, Normal Exam - Neck Exam Neck Exam: Full ROM, Normal Inspection. absent: Lymphadenopathy - Respiratory Exam Respiratory Exam: Decreased Breath Sounds - Cardiovascular Exam Cardiovascular Exam: REGULAR RHYTHM, +S1, +S2 - GI/Abdominal Exam GI & Abdominal Exam: Soft, Diminished Bowel Sounds - Rectal Exam Rectal Exam: Deferred
[2018-07-29 07:52] LABS: BLOOD UREA NITROGEN 16 mg/dL (9-20); GFR NON-AFRICAN AMERICAN > 60
[2018-07-29] MEDS: Enoxaparin 40 mg Syringe SC SCH (10:03)
--- NOTE | 2018-07-29 14:57 | CP.PCM.PN ---
Subjective - Date & Time of Evaluation Date of Evaluation: 07/29/18 Time of Evaluation: 14:56 - Subjective Subjective: Events reviewed Objective - Vital Signs/Intake and Output Vital Signs (last 24 hours): Temp Pulse Resp BP Pulse Ox 97.7 F 67 20 123/76 97 07/29/18 09:21 07/29/18 09:21 07/29/18 09:21 07/29/18 09:21 07/29/18 09:21 Intake and Output: 07/29/18 07/29/18 06:59 18:59 Intake Total 350 Balance 350 - Medications Medications: Current Medications Amlodipine Besylate (Norvasc) 10 mg PO DAILY [facility] Last Admin: 07/29/18 10:03 Dose: 10 mg Chlordiazepoxide (Librium) 25 mg PO Q8 PRN PRN Reason: Agitation Last Admin: 07/28/18 10:00 Dose: 25 mg Enoxaparin Sodium (Lovenox) 40 mg SC DAILY [facility] Last Admin: 07/29/18 10:03 Dose: 40 mg Ergocalciferol (Drisdol 50,000 Intl Units Cap) 1 cap PO Q7D [facility] Last Admin: 07/27/18 15:03 Dose: 1 cap Hydralazine HCl (Apresoline) 50 mg PO Q8 [facility] Last Admin: 07/29/18 13:20 Dose: 50 mg Cefazolin Sodium 2,000 mg/ (Sodium Chloride) 50 mls @ 100 mls/hr IVPB Q8H [facility]; Protocol Last Admin: 07/29/18 14:40 Dose: 100 mls/hr Lactulose (Enulose) 20 gm PO HS [facility] Last Admin: 07/29/18 00:16 Dose: 20 gm Losartan Potassium (Cozaar) 50 mg PO DAILY [facility] Last Admin: 07/29/18 13:20 Dose: 50 mg Thiamine HCl (Vitamin B1 Tab) 100 mg PO DAILY [facility] Last Admin: 07/29/18 10:02 Dose: 100 mg Tramadol HCl (Ultram) 50 mg PO TID PRN PRN Reason: Pain, moderate (4-7) Last Admin: 07/29/18 10:03 Dose: 50 mg - Labs Labs: 07/27/18 06:37 07/29/18 07:23 PT 10.4 SECONDS (9.7-12.2) 07/25/18 12:55 INR 1.0 07/25/18 12:55 APTT 33 SECONDS (21-34) 07/25/18 12:55 Assessment and Plan - Assessment and Plan (Free Text) Assessment: - Constitutional Appears: No Acute Distress - Head Exam Head Exam: ATRAUMATIC, NORMAL INSPECTION, NORMOCEPHALIC - Eye Exam Eye Exam: absent: Scleral icterus - ENT Exam ENT Exam: Mucous Membranes Moist, Normal Oropharynx - Respiratory Exam Respiratory Exam: Clear to Ausculation Bilateral, NORMAL BREATHING PATTERN. absent: Rhonchi, Wheezes - Cardiovascular Exam Cardiovascular Exam: REGULAR RHYTHM, +S1, +S2. absent: JVD - GI/Abdominal Exam GI & Abdominal Exam: Soft. absent: Tenderness, Organomegaly, Pulsatile Mass - Extremities Exam Extremities Exam: Normal Inspection. absent: Calf Tenderness, Pedal Edema Additional comments: L. arm cast - Neurological Exam Neurological Exam: Alert, Awake, Oriented x3 Assessment and Plan - Assessment and Plan (Free Text) Assessment: 68 year old man hx old CVA 2010 with distal ulnar and radial fracture of left e xtremity, occured in the setting of mechanical fall from prior gait disturbance. MRI is negative for Acute CVA, Telemetry: CARDIAC TROPONIN NEGATIVE FOR ACS; EKG image seen by me: NSR, Pacs, non- specific ST changes Normal LVEF and wall motion with grade 1 DD, mild pulm HTN on echo (images vi ewed by me) HTN is chronic and stable on losartan and hydralazine to 50 q8, cont norvasc 10. FOR ORIF left distal radius: Monday Patient is acceptable risk to proceed with surgery with optimal BP control
--- NOTE | 2018-07-29 15:28 | CP.PCM.PN ---
Subjective - Date & Time of Evaluation Date of Evaluation: 07/29/18 Time of Evaluation: 11:15 - Subjective Subjective: clinically same Objective - Vital Signs/Intake and Output Vital Signs (last 24 hours): Temp Pulse Resp BP Pulse Ox 97.7 F 67 20 123/76 97 07/29/18 09:21 07/29/18 09:21 07/29/18 09:21 07/29/18 09:21 07/29/18 09:21 Intake and Output: 07/29/18 07/29/18 06:59 18:59 Intake Total 350 Balance 350 - Medications Medications: Current Medications Amlodipine Besylate (Norvasc) 10 mg PO DAILY [facility] Last Admin: 07/29/18 10:03 Dose: 10 mg Chlordiazepoxide (Librium) 25 mg PO Q8 PRN PRN Reason: Agitation Last Admin: 07/28/18 10:00 Dose: 25 mg Enoxaparin Sodium (Lovenox) 40 mg SC DAILY [facility] Last Admin: 07/29/18 10:03 Dose: 40 mg Ergocalciferol (Drisdol 50,000 Intl Units Cap) 1 cap PO Q7D [facility] Last Admin: 07/27/18 15:03 Dose: 1 cap Hydralazine HCl (Apresoline) 50 mg PO Q8 [facility] Last Admin: 07/29/18 13:20 Dose: 50 mg Lactulose (Enulose) 20 gm PO HS [facility] Last Admin: 07/29/18 00:16 Dose: 20 gm Losartan Potassium (Cozaar) 50 mg PO DAILY [facility] Last Admin: 07/29/18 13:20 Dose: 50 mg Thiamine HCl (Vitamin B1 Tab) 100 mg PO DAILY [facility] Last Admin: 07/29/18 10:02 Dose: 100 mg Tramadol HCl (Ultram) 50 mg PO TID PRN PRN Reason: Pain, moderate (4-7) Last Admin: 07/29/18 10:03 Dose: 50 mg - Labs Labs: 07/27/18 06:37 07/29/18 07:23 PT 10.4 SECONDS (9.7-12.2) 07/25/18 12:55 INR 1.0 07/25/18 12:55 APTT 33 SECONDS (21-34) 07/25/18 12:55
--- NOTE | 2018-07-30 07:18 | PN ---
DATE: 07/29/2018 NEUROLOGICAL PROBLEM: Syncope. PHYSICAL EXAMINATION: VITAL SIGNS: Blood pressure 123/76, mean artery pressure 91, respiratory rate 18, pulse rate 67 regular, temperature 97.7. Patient is comfortably lying down and sleeping, arousable on calling his name. His examination which is unchanged when compared with the previous examination. No new neurological episodes happened during his hospitalization. From neurological point of view workup is completed. Continue the present management. Abstinence from alcohol has been again stressed and this is to be followed. The patient has a followup with the orthopedic surgeon. From neurological point of view, I am signing him off from neurological followup brief anything changes, please consider to call me for further workup. Jaciel Ruiz MD
--- NOTE | 2018-07-30 08:48 | EEG ---
DATE: 07/26/2018 This is a 16-channel electroencephalogram of awake and drowsy adult. During the study, photic stimulation was performed. Hyperventilation was not performed. The resting electroencephalogram consists of diffuse theta activities to begin with, followed with persistent muscle artifact contaminated bilateral cortical leads. Later these activities further slowed down to form a high amplitude 2 to 3 Hz delta activity seen consistent with drowsiness. The photic stimulation did not evoke driving response noted at 2 to 20 Hz. There was a brief period of 2-second high amplitude polyphasic activities noted without any slow activities were followed. This may be nonspecific at this time. IMPRESSION: This is abnormal electroencephalogram because of persistent slowing throughout the records, suggestive of bilateral cerebral dysfunction. There is a brief period of polyphasic potential consistent with nonspecific; however, clinically indicated, consider extended ambulatory video electroencephalogram. Jaciel Ruiz MD
[2018-07-30 08:51] LABS: BLOOD UREA NITROGEN 18 mg/dL (9-20); CALCIUM 9.1 mg/dl (8.6-10.4); GFR NON-AFRICAN AMERICAN > 60
[2018-07-30] MEDS ORDERED: ceFAZolin 1 gm in NS 1 GM/100 ML BAG IVPB ONE (11:31)
[2018-07-30] MEDS ORDERED: LIDOCAINE 2% PF (2ML) ONE (11:33)
[2018-07-30] MEDS ORDERED: Propofol 10 mg/ml Inj (20 ML) ONE ×2 (12:01→14:53)
[2018-07-30] MEDS ORDERED: Rocuronium 10 mg/ml (5 ml) ONE ×2 (12:02→12:04)
[2018-07-30] MEDS ORDERED: Midazolam 2 MG/2 ML VIAL ONE (12:04)
[2018-07-30] MEDS ORDERED: Neostigmine 1:1000 (1 mg/ml) Inj ONE (14:06)
[2018-07-30] MEDS ORDERED: Bacitracin Ointment 30 GM TUBE ONE (14:09)
--- NOTE | 2018-07-30 14:56 | PCM.SURG1 ---
Surgeon's Initial Post Op Note - Surgeon's Notes Surgeon: [employer] Fellow: Jose F London,/ 2nd assist Maryellen Berman PA-C Type of Anesthesia: General Endo Anesthesia Administered By: Pre-Operative Diagnosis: displaced/comminuted fx distal radiu. displaced 5th metracarpal fx. old fx prox phalanx 4th finger Operative Findings: as above Post-Operative Diagnosis: as above Operation Performed: ORIF displaced sital resius fracture. ORIF 5th metacarpal frcature. allograft boine graft distal radius. closed redcution distal ulna fracture Specimen/Specimens Removed: fx callous Estimated Blood Loss: EBL {In ML}: 10 Blood Products Given: N/A Drains Used: No Drains Post-Op Condition: Fair Date of Surgery/Procedure: 07/30/18 Time of Surgery/Procedure: 12:50 (time in room 12N)
[2018-07-30] MEDS ORDERED: Labetalol 25mg/5ml Syringe ONE (15:06)
[2018-07-30] MEDS: Labetalol 25mg/5ml Syringe IVP PRN ×2 (15:30→15:35)
[2018-07-30] MEDS: HYDROmorphone 0.5 mg/0.5 ml ISec IVP PRN ×3 (16:04→16:36)
--- NOTE | 2018-07-30 16:41 | RAD ---
PROCEDURE: Left Hand Radiographs. HISTORY: pt in pacu s/p ORIF 5th mc COMPARISON: 07/25/2018 FINDINGS: BONES: Cast obscures fine bony details. Status post open reduction and internal fixation of comminuted impacted fracture in the distal radius. There is interval improved alignment of fracture fragments on lateral projection. Status post reduction and internal fixation of oblique fracture in the midshaft of the 5th metacarpal with metallic plate and screws. There is redemonstration of comminuted impacted fracture in the distal radius. JOINTS: Normal. No osteoarthritic changes. SOFT TISSUES: There is redemonstration of soft tissue swelling in the hand. OTHER FINDINGS: None. IMPRESSION: Status post open reduction and internal fixation of acute comminuted impacted fracture in the distal radius with interval improved alignment of fracture fragments on lateral projection. Status post reduction and internal fixation of oblique fracture in the midshaft of the 5th metacarpal. No change in acute comminuted impacted fracture in the distal ulna.
--- NOTE | 2018-07-30 16:42 | RAD ---
Date of service: 07/30/2018 PROCEDURE: Left Wrist Radiographs. HISTORY: s/p ORIF wrist COMPARISON: 07/25/2018 FINDINGS: BONES: Cast obscures fine bony details. Status post open reduction and internal fixation of acute comminuted impacted fracture in the distal radius with metallic plate and screws. There is improved alignment of fracture fragments in the lateral projection. Status post reduction and internal fixation of oblique fracture in the midshaft of the 5th metacarpal. Redemonstration of acute comminuted impacted fracture in the distal ulna. There is diffuse bone demineralization. No dislocation. JOINTS: Normal. No dislocation. SOFT TISSUES: Normal. OTHER FINDINGS: There are multiple skin joe in the ventral distal forearm. IMPRESSION: Status post open reduction and internal fixation of acute comminuted impacted fracture in the distal radius and acute nondisplaced fracture in the midshaft of the 5th metacarpal. No acute complications. The
--- NOTE | 2018-07-30 17:08 | CP.PCM.PN ---
Subjective - Date & Time of Evaluation Date of Evaluation: 07/30/18 Time of Evaluation: 17:07 - Subjective Subjective: S/P ORIF displaced DISTAL RADIAL fracture. ORIF 5th metacarpal frcature. allograft boine graft distal radius. closed redcution distal ulna fracture No cardiac complaints Objective - Vital Signs/Intake and Output Vital Signs (last 24 hours): Temp Pulse Resp BP Pulse Ox 97.7 F 65 10 L 150/79 100 07/30/18 15:05 07/30/18 15:50 07/30/18 15:50 07/30/18 15:50 07/30/18 15:50 Intake and Output: 07/30/18 07/30/18 06:59 18:59 Intake Total 300 1200 Output Total 500 Balance -200 1200 - Medications Medications: Current Medications Amlodipine Besylate (Norvasc) 10 mg PO DAILY [facility] Last Admin: 07/30/18 10:58 Dose: Not Given Chlordiazepoxide (Librium) 25 mg PO Q8 PRN PRN Reason: Agitation Last Admin: 07/28/18 10:00 Dose: 25 mg Docusate Sodium (Colace) 100 mg PO BID [facility] Enoxaparin Sodium (Lovenox) 40 mg SC DAILY [facility] Last Admin: 07/29/18 10:03 Dose: 40 mg Ergocalciferol (Drisdol 50,000 Intl Units Cap) 1 cap PO Q7D [facility] Last Admin: 07/27/18 15:03 Dose: 1 cap Hydralazine HCl (Apresoline) 50 mg PO Q8 [facility] Last Admin: 07/30/18 05:51 Dose: 50 mg Hydromorphone HCl (Dilaudid) 0.5 mg IVP Q10M PRN PRN Reason: Pain, moderate (4-7) Stop: 07/30/18 17:56 Last Admin: 07/30/18 16:36 Dose: 0.5 mg Sodium Chloride (Sodium Chloride 0.9%) 1,000 mls @ 100 mls/hr IV .Q10H [facility] Cefazolin Sodium/Dextrose (Ancef Iv 2 Gm Duplex) 2 gm in 50 mls @ 100 mls/hr I VPB Q8H [facility]; Protocol Labetalol HCl (Trandate) 5 mg IVP Q5MIN PRN PRN Reason: Systolic Blood Pressure Last Admin: 07/30/18 15:35 Dose: 5 mg Lactulose (Enulose) 20 gm PO HS [facility] Last Admin: 07/29/18 21:13 Dose: 20 gm Losartan Potassium (Cozaar) 50 mg PO DAILY [facility] Last Admin: 07/30/18 10:58 Dose: Not Given Morphine Sulfate (Morphine) 2 mg IVP Q4 PRN PRN Reason: pain Last Admin: 07/30/18 10:55 Dose: 2 mg Oxycodone/Acetaminophen (Percocet 5/325 Mg Tab) 2 tab PO Q4H PRN PRN Reason: Pain, moderate (4-7) Stop: 08/02/18 15:13 Thiamine HCl (Vitamin B1 Tab) 100 mg PO DAILY [facility] Last Admin: 07/30/18 11:00 Dose: Not Given Tramadol HCl (Ultram) 50 mg PO TID PRN PRN Reason: Pain, moderate (4-7) Last Admin: 07/29/18 17:46 Dose: 50 mg - Labs Labs: 07/27/18 06:37 07/30/18 08:27 PT 10.4 SECONDS (9.7-12.2) 07/25/18 12:55 INR 1.0 07/25/18 12:55 APTT 33 SECONDS (21-34) 07/25/18 12:55 - Constitutional Appears: No Acute Distress - Eye Exam Eye Exam: EOMI, Normal appearance. absent: Scleral icterus - ENT Exam ENT Exam: Mucous Membranes Moist, Normal Oropharynx - Neck Exam Neck Exam: Full ROM. absent: Thyromegaly - Respiratory Exam Respiratory Exam: Clear to Ausculation Bilateral, NORMAL BREATHING PATTERN. absent: Rales, Rhonchi, Wheezes - Cardiovascular Exam Cardiovascular Exam: REGULAR RHYTHM, +S1, +S2. absent: Murmur - GI/Abdominal Exam GI & Abdominal Exam: Soft, Normal Bowel Sounds. absent: Tenderness - Extremities Exam Extremities Exam: absent: Calf Tenderness, Normal Inspection (L. ARM cast) - Neurological Exam Neurological Exam: Alert, Awake, Oriented x3 Assessment and Plan - Assessment and Plan (Free Text) Assessment: 68 year old man hx old CVA 2010 with distal ulnar and radial fracture of left extremity, occured in the setting of mechanical fall from prior gait disturbance. MRI is negative for Acute CVA, CARDIAC TROPONIN NEGATIVE FOR ACS; EKG image seen by me: NSR, Pacs, non- specific ST changes Normal LVEF and wall motion with grade 1 DD, mild pulm HTN on echo (images viewed by me) HTN is chronic and stable on losartan and hydralazine to 50 q8, cont norvasc 10. Pain management: titrate up losartan and hydralazine if needed No post op complications Cont medical RX: will sign off.
[2018-07-30 17:42] VITALS: RESP 20
[2018-07-30] MEDS: Oxycodone/Acetaminophen 5/325 mg Tab PO PRN (18:01)
--- NOTE | 2018-07-30 18:49 | CP.PCM.PN ---
Subjective - Date & Time of Evaluation Date of Evaluation: 07/30/18 Time of Evaluation: 10:45 - Subjective Subjective: clinically same Objective - Vital Signs/Intake and Output Vital Signs (last 24 hours): Temp Pulse Resp BP Pulse Ox 97.2 F L 62 20 166/82 H 96 07/30/18 17:30 07/30/18 17:30 07/30/18 17:30 07/30/18 17:30 07/30/18 17:30 Intake and Output: 07/30/18 07/30/18 06:59 18:59 Intake Total 300 1200 Output Total 500 Balance -200 1200 - Medications Medications: Current Medications Amlodipine Besylate (Norvasc) 10 mg PO DAILY [facility] Last Admin: 07/30/18 10:58 Dose: Not Given Chlordiazepoxide (Librium) 25 mg PO Q8 PRN PRN Reason: Agitation Last Admin: 07/28/18 10:00 Dose: 25 mg Docusate Sodium (Colace) 100 mg PO BID [facility] Last Admin: 07/30/18 17:57 Dose: 100 mg Enoxaparin Sodium (Lovenox) 40 mg SC DAILY [facility] Last Admin: 07/29/18 10:03 Dose: 40 mg Ergocalciferol (Drisdol 50,000 Intl Units Cap) 1 cap PO Q7D [facility] Last Admin: 07/27/18 15:03 Dose: 1 cap Hydralazine HCl (Apresoline) 50 mg PO Q8 [facility] Last Admin: 07/30/18 05:51 Dose: 50 mg Sodium Chloride (Sodium Chloride 0.9%) 1,000 mls @ 100 mls/hr IV .Q10H [facility] Cefazolin Sodium/Dextrose (Ancef Iv 2 Gm Duplex) 2 gm in 50 mls @ 100 mls/hr IVPB Q8H [facility]; Protocol Labetalol HCl (Trandate) 5 mg IVP Q5MIN PRN PRN Reason: Systolic Blood Pressure Last Admin: 07/30/18 15:35 Dose: 5 mg Lactulose (Enulose) 20 gm PO HS [facility] Last Admin: 07/29/18 21:13 Dose: 20 gm Losartan Potassium (Cozaar) 50 mg PO DAILY [facility] Last Admin: 07/30/18 10:58 Dose: Not Given Morphine Sulfate (Morphine) 2 mg IVP Q4 PRN PRN Reason: pain Last Admin: 07/30/18 10:55 Dose: 2 mg Oxycodone/Acetaminophen (Percocet 5/325 Mg Tab) 2 tab PO Q4H PRN PRN Reason: Pain, moderate (4-7) Stop: 08/02/18 15:13 Last Admin: 07/30/18 18:01 Dose: 2 tab Thiamine HCl (Vitamin B1 Tab) 100 mg PO DAILY [facility] Last Admin: 07/30/18 11:00 Dose: Not Given Tramadol HCl (Ultram) 50 mg PO TID PRN PRN Reason: Pain, moderate (4-7) Last Admin: 07/29/18 17:46 Dose: 50 mg - Labs Labs: 07/27/18 06:37 07/30/18 08:27 PT 10.4 SECONDS (9.7-12.2) 07/25/18 12:55 INR 1.0 07/25/18 12:55 APTT 33 SECONDS (21-34) 07/25/18 12:55
[2018-07-30] MEDS: ceFAZolin IV 2 gm in Dextrose 2 GM/50 ML BAG IVPB SCH (20:49)
[2018-07-30] MEDS: Sodium Chloride 0.9% 1,000 ML IV SCH (20:49)
[2018-07-31] MEDS: Sodium Chloride 0.9% 1,000 ML IV SCH ×3 (03:31→11:14)
[2018-07-31] MEDS: Oxycodone/Acetaminophen 5/325 mg Tab PO PRN ×3 (03:32→15:31)
[2018-07-31] MEDS: ceFAZolin IV 2 gm in Dextrose 2 GM/50 ML BAG IVPB SCH ×2 (03:34→12:15)
--- NOTE | 2018-07-31 05:47 | OP ---
PROCEDURE DATE: 07/30/2018 PREOPERATIVE DIAGNOSES: 1. Comminuted displaced fracture of the distal radius of the left wrist. 2. Displaced fifth metacarpal fracture, left hand. 3. Old fracture, proximal phalanx, fourth finger. POSTOPERATIVE DIAGNOSES: 1. Displaced comminuted fracture of the distal radius. 2. Displaced fifth metacarpal fracture with shortening. 3. Old fracture of the proximal phalanx. OPERATIVE FINDINGS: 1. Displaced comminuted fracture of the distal radius. 2. Displaced and shortened fifth metacarpal fracture. 3. Old fracture of the proximal phalanx. OPERATIVE PROCEDURE: 1. Open reduction and internal fixation of displaced distal radius fracture. 2. Release of transverse carpal ligament. 3. Open reduction and internal fixation of displaced fifth metacarpal fracture. 4. Partial flexor tenosynovectomy. 5. Partial median neurolysis under loupe magnification. 6. Autograft, allograft bone graft into the distal radius. 7. Application of Oleg Almeida compression dressing and volar splint. 8. Positioning of fluoroscope, interpretation of video images. SURGEON: Jerson Lilly MD F[employer]T [employer] MELLOWING MACHINE OPERATOR: Maryellen Berman PA-C SECOND ILLUMINATOR: SHARRON Pierre, certified registered nursing kindergarten assistant. TYPE OF ANESTHESIA: General endotracheal anesthesia. ANESTHESIA ADMINISTERED BY: . SPECIMENS REMOVED: Fracture callus. BLOOD LOSS: Approximately 10 mL. BLOOD PRODUCTS GIVEN: No blood products given. DRAINS: No drains. POSTOPERATIVE CONDITION: Stable. TIME OF SURGERY: Time in the room 12 noon. Incision time 1250. PERATIVE INDICATION: Darrin Mott is a 68-year-old gentleman who was admitted to [facility] through the emergency room last week. The patient is an alcoholic, has had a previous stroke, and presented after a fall on the outstretched upper extremity. The patient was admitted. Medical stabilization and cardiologic stabilization were accomplished. The patient was taken to surgery today after having obtained informed consent for open reduction and internal fixation of the distal radius fracture, open reduction and internal fixation of the fifth metacarpal fracture. Pros, cons, risks, and benefits of the surgical approach were discussed with the patient. The possibility of mechanical failure, infection, thromboembolic disease, secondary or tertiary surgery were discussed. The patient can no longer withstand the discomfort and wished the surgery to be accomplished. DESCRIPTION OF PROCEDURE: After having obtained informed consent in the above fashion; after having identified side, site, and procedure; and a critical pause/time-out; after satisfactory induction of the anesthetic, the patient identified as Darrin Mott in the supine position with all bony prominences well padded, the left lower extremity was prepped and free draped in the usual fashion for upper extremity surgery. The tourniquet had been applied, but has not yet inflated. After exsanguinating the limb, using a 4-inch Esmarch bandage, the tourniquet, which had been applied, was inflated to 250 mmHg. An incision was described in the median palmar crease deviating radially at the distal crease and back proximally at the proximal crease. The incision was extended proximally in the interval between the flexor carpi radialis and the palmaris longus. The wrist is going to be addressed first to be followed by the fifth metacarpal because of the patient's unpredictability with respect to comply. The skin incision was carried down to the skin and subcutaneous tissue. The dissection was carried down to the fascia. A great care was taken to divide the fascia and the forearm. The palmar aponeurosis was identified and divided. A great care was taken to avoid injury to the palmar cutaneous branch of the median nerve and the motor branch of the median nerve. The flap is elevated. The entire extent of the transverse carpal ligament was identified. The transverse carpal ligament was divided. At this point in time, the underlying compressed medial nerve is identified and released. At this point in time, the pronator quadratus was carefully divided, taking great care to avoid injury to the anterior interosseous nerve. The fracture site is identified, and the fracture was reduced using a [id number] osteotome. The fracture having been reduced, the distal radial locking plate was placed. Each sequential drill hole was drilled, sounded, and the appropriate size screws were placed. The fracture was found to be exceptionally fixed. The plate was intentionally placed on the bias to achieve the firmest fixation. The bone is very osteopenic. At this point in time, closed reduction of the ulnar fracture was accomplished. The wound was thoroughly irrigated. Autograft and allograft bone grafts were applied to the fracture site for bone grafting. At this point in time, attention was turned to the fifth metacarpal of the left hand and incision was described on the dorsal ulnar aspect. The skin incision was carried down through the skin and subcutaneous tissue. The fracture site was identified and curetted of healing callus. The dorsal cutaneous branch of the ulnar nerve was identified and preserved. The dissection was carried down to the fracture site. The fracture callus was removed. The fracture was reduced with retraction on the fifth finger and it is held with a towel, clip, bone-holding clamp. A small fragment plate was applied dorsoulnarly, and two lag screws were placed across the oblique aspect of the fracture. Each sequential drill hole otherwise was drilled, sounded, and the appropriate size screws were placed. The screws were kept along because of the poor nature of the bone. The wound was thoroughly irrigated. Closure is the deep periosteal layer, superficial deep to the tendons of the extensor digitorum communis of the fifth finger. This having been accomplished, the wounds have been thoroughly irrigated, closures in layers with interrupted Vicryl and nylon. Closure of the wrist was with interrupted Vicryl and nylon. Oleg Almeida compression dressing and volar splint was applied. It should be noted that under the surgeon's direction, the fluoroscope had been positioned, video images were generated, and therapeutic decisions were made there from. Jerson Lilly MD
--- NOTE | 2018-07-31 07:25 | RAD ---
Date of service: 07/30/2018 PROCEDURE: Intraoperative Fluoroscopy. HISTORY: Left distal radius and 5th metacarpal fracture deformity FINDINGS: Fluoroscopic assistance was provided for left distal radius and left 5th metacarpal fracture repair. Fracture deformity of the ulna also noted. Please refer to the operative report from YARI Desir.
[2018-07-31 08:57] LABS: MEAN CELL VOLUME 97.6 fL (80.0-94.0); MEAN CORPUSCULAR HGB CONC 33.9 g/dL (33.0-37.0); RBC 3.32 Mil/uL (4.40-5.90); RED CELL DISTRIBUTION WIDTH 13.9 % (11.5-14.5)
[2018-07-31 09:25] LABS: BLOOD UREA NITROGEN 14 mg/dL (9-20); CALCIUM 9.1 mg/dl (8.6-10.4); GFR NON-AFRICAN AMERICAN > 60
--- NOTE | 2018-07-31 10:07 | CP.PCM.PN ---
Subjective - Date & Time of Evaluation Date of Evaluation: 07/31/18 Time of Evaluation: 10:04 - Subjective Subjective: Patient states he has a lot of pain in his wrist, better this am than last night. Denies CP/SOB/dizziness. Objective - Vital Signs/Intake and Output Vital Signs (last 24 hours): Temp Pulse Resp BP Pulse Ox 99.0 F 76 20 156/77 H 96 07/31/18 08:34 07/31/18 08:34 07/31/18 08:34 07/31/18 08:34 07/31/18 08:34 Intake and Output: 07/31/18 07/31/18 06:59 18:59 Intake Total 700 Balance 700 - Medications Medications: Current Medications Amlodipine Besylate (Norvasc) 10 mg PO DAILY [facility] Last Admin: 07/31/18 09:29 Dose: 10 mg Chlordiazepoxide (Librium) 25 mg PO Q8 PRN PRN Reason: Agitation Last Admin: 07/28/18 10:00 Dose: 25 mg Docusate Sodium (Colace) 100 mg PO BID [facility] Last Admin: 07/31/18 09:29 Dose: 100 mg Enoxaparin Sodium (Lovenox) 40 mg SC DAILY [facility] Last Admin: 07/29/18 10:03 Dose: 40 mg Ergocalciferol (Drisdol 50,000 Intl Units Cap) 1 cap PO Q7D [facility] Last Admin: 07/27/18 15:03 Dose: 1 cap Hydralazine HCl (Apresoline) 50 mg PO Q8 [facility] Last Admin: 07/31/18 05:55 Dose: 50 mg Sodium Chloride (Sodium Chloride 0.9%) 1,000 mls @ 100 mls/hr IV .Q10H [facility] Last Admin: 07/31/18 09:29 Dose: 100 mls/hr Cefazolin Sodium/Dextrose (Ancef Iv 2 Gm Duplex) 2 gm in 50 mls @ 100 mls/hr IVPB Q8H [facility]; Protocol Last Admin: 07/31/18 03:34 Dose: 100 mls/hr Labetalol HCl (Trandate) 5 mg IVP Q5MIN PRN PRN Reason: Systolic Blood Pressure Last Admin: 07/30/18 15:35 Dose: 5 mg Lactulose (Enulose) 20 gm PO HS [facility] Last Admin: 07/30/18 22:23 Dose: 20 gm Losartan Potassium (Cozaar) 50 mg PO DAILY [facility] Last Admin: 07/31/18 09:29 Dose: 50 mg Morphine Sulfate (Morphine) 2 mg IVP Q4 PRN PRN Reason: pain Last Admin: 07/31/18 05:23 Dose: 2 mg Oxycodone/Acetaminophen (Percocet 5/325 Mg Tab) 2 tab PO Q4H PRN PRN Reason: Pain, moderate (4-7) Stop: 08/02/18 15:13 Last Admin: 07/31/18 07:56 Dose: 2 tab Thiamine HCl (Vitamin B1 Tab) 100 mg PO DAILY [facility] Last Admin: 07/31/18 09:29 Dose: 100 mg Tramadol HCl (Ultram) 50 mg PO TID PRN PRN Reason: Pain, moderate (4-7) Last Admin: 07/30/18 22:23 Dose: 50 mg - Labs Labs: 07/31/18 08:22 07/31/18 08:22 PT 10.4 SECONDS (9.7-12.2) 07/25/18 12:55 INR 1.0 07/25/18 12:55 APTT 33 SECONDS (21-34) 07/25/18 12:55 - Extremities Exam Additional comments: sensation intact to rad/med/ulnar nerves, +ROM thumb/index/ring flex/ext, elevated, +cap refill Assessment and Plan (1) Open fracture of distal end of left radius Assessment & Plan: POD#1 s/p ORIF left distal radius and ORIF left 5th MC fx keep splint dry and intact, elevate at all times orthopedically stable for d/c home, f/u in office Dr. Lilly in 7-10 days call for appointment cont Vit D supplementation upon discharge, recheck in 3 months d/w dr. Lilly, agrees with above Status: Acute (2) Fracture of fifth metacarpal bone of left hand Status: Acute (3) Fracture of phalanx of finger of left hand Status: Acute (4) Left ulnar fracture Status: Acute (5) Vitamin D deficiency Status: Acute
--- NOTE | 2018-07-31 14:44 | CP.PCM.PN ---
Subjective - Date & Time of Evaluation Date of Evaluation: 07/31/18 Time of Evaluation: 12:00 - Subjective Subjective: clinically same Objective - Vital Signs/Intake and Output Vital Signs (last 24 hours): Temp Pulse Resp BP Pulse Ox 99.0 F 76 20 156/77 H 96 07/31/18 08:34 07/31/18 08:34 07/31/18 08:34 07/31/18 08:34 07/31/18 08:34 Intake and Output: 07/31/18 07/31/18 06:59 18:59 Intake Total 700 Balance 700 - Medications Medications: Current Medications Amlodipine Besylate (Norvasc) 10 mg PO DAILY [facility] Last Admin: 07/31/18 09:29 Dose: 10 mg Chlordiazepoxide (Librium) 25 mg PO Q8 PRN PRN Reason: Agitation Last Admin: 07/28/18 10:00 Dose: 25 mg Docusate Sodium (Colace) 100 mg PO BID [facility] Last Admin: 07/31/18 09:29 Dose: 100 mg Enoxaparin Sodium (Lovenox) 40 mg SC DAILY [facility] Last Admin: 07/29/18 10:03 Dose: 40 mg Ergocalciferol (Drisdol 50,000 Intl Units Cap) 1 cap PO Q7D [facility] Last Admin: 07/27/18 15:03 Dose: 1 cap Hydralazine HCl (Apresoline) 50 mg PO Q8 [facility] Last Admin: 07/31/18 13:20 Dose: 50 mg Sodium Chloride (Sodium Chloride 0.9%) 1,000 mls @ 100 mls/hr IV .Q10H [facility] Last Admin: 07/31/18 11:14 Dose: Not Given Cefazolin Sodium/Dextrose (Ancef Iv 2 Gm Duplex) 2 gm in 50 mls @ 100 mls/hr IVPB Q8H [facility]; Protocol Last Admin: 07/31/18 12:15 Dose: 100 mls/hr Labetalol HCl (Trandate) 5 mg IVP Q5MIN PRN PRN Reason: Systolic Blood Pressure Last Admin: 07/30/18 15:35 Dose: 5 mg Lactulose (Enulose) 20 gm PO HS [facility] Last Admin: 07/30/18 22:23 Dose: 20 gm Losartan Potassium (Cozaar) 50 mg PO DAILY [facility] Last Admin: 07/31/18 09:29 Dose: 50 mg Morphine Sulfate (Morphine) 2 mg IVP Q4 PRN PRN Reason: pain Last Admin: 07/31/18 12:14 Dose: 2 mg Oxycodone/Acetaminophen (Percocet 5/325 Mg Tab) 2 tab PO Q4H PRN PRN Reason: Pain, moderate (4-7) Stop: 08/02/18 15:13 Last Admin: 07/31/18 07:56 Dose: 2 tab Thiamine HCl (Vitamin B1 Tab) 100 mg PO DAILY [facility] Last Admin: 07/31/18 09:29 Dose: 100 mg Tramadol HCl (Ultram) 50 mg PO TID PRN PRN Reason: Pain, moderate (4-7) Last Admin: 07/30/18 22:23 Dose: 50 mg - Labs Labs: 07/31/18 08:22 07/31/18 08:22 PT 10.4 SECONDS (9.7-12.2) 07/25/18 12:55 INR 1.0 07/25/18 12:55 APTT 33 SECONDS (21-34) 07/25/18 12:55
[2018-07-31 15:46] VITALS: BP 165/72; PULSE 79; TEMP 98; O2SAT 98
--- NOTE | 2018-07-31 17:57 | CP.PCM.PN ---
Subjective - Date & Time of Evaluation Date of Evaluation: 07/31/18 Time of Evaluation: 11:00 - Subjective Subjective: alert and oriented x3, no sob or chest pains, NAD. Objective - Vital Signs/Intake and Output Vital Signs (last 24 hours): Temp Pulse Resp BP Pulse Ox 98 F 79 20 165/72 H 98 07/31/18 15:43 07/31/18 15:43 07/31/18 15:43 07/31/18 15:43 07/31/18 15:43 Intake and Output: 07/31/18 07/31/18 06:59 18:59 Intake Total 700 Balance 700 - Medications Medications: Current Medications Amlodipine Besylate (Norvasc) 10 mg PO DAILY [facility] Last Admin: 07/31/18 09:29 Dose: 10 mg Chlordiazepoxide (Librium) 25 mg PO Q8 PRN PRN Reason: Agitation Last Admin: 07/28/18 10:00 Dose: 25 mg Docusate Sodium (Colace) 100 mg PO BID [facility] Last Admin: 07/31/18 09:29 Dose: 100 mg Enoxaparin Sodium (Lovenox) 40 mg SC DAILY [facility] Last Admin: 07/29/18 10:03 Dose: 40 mg Ergocalciferol (Drisdol 50,000 Intl Units Cap) 1 cap PO Q7D [facility] Last Admin: 07/27/18 15:03 Dose: 1 cap Hydralazine HCl (Apresoline) 50 mg PO Q8 [facility] Last Admin: 07/31/18 13:20 Dose: 50 mg Sodium Chloride (Sodium Chloride 0.9%) 1,000 mls @ 100 mls/hr IV .Q10H [facility] Last Admin: 07/31/18 11:14 Dose: Not Given Cefazolin Sodium/Dextrose (Ancef Iv 2 Gm Duplex) 2 gm in 50 mls @ 100 mls/hr IVPB Q8H [facility]; Protocol Last Admin: 07/31/18 12:15 Dose: 100 mls/hr Labetalol HCl (Trandate) 5 mg IVP Q5MIN PRN PRN Reason: Systolic Blood Pressure Last Admin: 07/30/18 15:35 Dose: 5 mg Lactulose (Enulose) 20 gm PO HS [facility] Last Admin: 07/30/18 22:23 Dose: 20 gm Losartan Potassium (Cozaar) 50 mg PO DAILY [facility] Last Admin: 07/31/18 09:29 Dose: 50 mg Morphine Sulfate (Morphine) 2 mg IVP Q4 PRN PRN Reason: pain Last Admin: 07/31/18 12:14 Dose: 2 mg Oxycodone/Acetaminophen (Percocet 5/325 Mg Tab) 2 tab PO Q4H PRN PRN Reason: Pain, moderate (4-7) Stop: 08/02/18 15:13 Last Admin: 07/31/18 15:31 Dose: 2 tab Thiamine HCl (Vitamin B1 Tab) 100 mg PO DAILY [facility] Last Admin: 07/31/18 09:29 Dose: 100 mg Tramadol HCl (Ultram) 50 mg PO TID PRN PRN Reason: Pain, moderate (4-7) Last Admin: 07/30/18 22:23 Dose: 50 mg - Labs Labs: 07/31/18 08:22 07/31/18 08:22 PT 10.4 SECONDS (9.7-12.2) 07/25/18 12:55 INR 1.0 07/25/18 12:55 APTT 33 SECONDS (21-34) 07/25/18 12:55 Assessment and Plan - Assessment and Plan (Free Text) Assessment: 68 YEAR OLD male admitted after fall and sustained fracture on the left wrist, cleared by ortho for discharge home today, Seen and examined, alert and orientedx3, denies acute pain or distress. Discussed with DR Marcia Centeno, plan to discharge home today. Advised to follow up with PMD in 1 week and with ortho in 7-10 days as advised. percocet #20 tabs given for pain management.
== END 2018-07-31 18:05 | disposition home or self-care (01) | DRG 511 ==
LOC: C.ER 12:05 → C.9E 14:59 → C.6T 15:58
PROVIDERS: ADMIT Internal Medicine Nephrology; ATTEND Internal Medicine Nephrology
PROC: 0PSQ04Z Reposition Left Metacarpal with Internal Fixation Device, Open Approach (ICD-10-PCS; 2018-07-30)
PROC: 0PSLXZZ Reposition Left Ulna, External Approach (ICD-10-PCS; 2018-07-30)
PROC: 0PSJ04Z Reposition Left Radius with Internal Fixation Device, Open Approach (ICD-10-PCS; principal; 2018-07-30 12:00)
DX: S52.502A Unspecified fracture of the lower end of left radius, initial encounter for closed fracture (principal); E87.1 Hypo-osmolality and hyponatremia; S52.609A Unspecified fracture of lower end of unspecified ulna, initial encounter for closed fracture; Z68.20 Body mass index [BMI] 20.0-20.9, adult; F10.10 Alcohol abuse, uncomplicated; Y90.1 Blood alcohol level of 20-39 mg/100 ml; E55.9 Vitamin D deficiency, unspecified; F17.210 Nicotine dependence, cigarettes, uncomplicated; I10 Essential (primary) hypertension; I25.10 Atherosclerotic heart disease of native coronary artery without angina pectoris; I27.20 Pulmonary hypertension, unspecified; J44.9 Chronic obstructive pulmonary disease, unspecified; W06.XXXA Fall from bed, initial encounter; Y92.003 Bedroom of unspecified non-institutional (private) residence as the place of occurrence of the external cause; S62.307A Unspecified fracture of fifth metacarpal bone, left hand, initial encounter for closed fracture; S52.602A Unspecified fracture of lower end of left ulna, initial encounter for closed fracture; Z86.73 Personal history of transient ischemic attack (TIA), and cerebral infarction without residual deficits